=== PATIENT | male | born 1950 | race Caucasian/White ===

== ENCOUNTER 2017-09-20 15:13 | Outpatient (RCR) | payer MEDICARE, SELFPAY ==
[2017-08-07 15:00] LABS: Prothrombin Time Fingerstick 27.7 SEC (11.9-14.4)
[2017-09-04 17:11] LABS: Prothrombin Time Fingerstick 19.1 SEC (11.9-14.4)
[2017-09-20 15:51] LABS: Prothrombin Time Fingerstick 29.5 SEC (11.9-14.4)
== END 2017-09-20 16:00 | disposition home or self-care (01) ==
LOC: MTLAB 15:13
PROVIDERS: Family Provider Internal Medicine; PCP Internal Medicine; Visit Provider Internal Medicine
DX: Z79.01 Long term (current) use of anticoagulants (principal)
CPT/HCPCS: 36416; 85610

== ENCOUNTER 2017-10-23 15:19 | Outpatient (RCR) | payer MEDICARE, SELFPAY ==
[2017-10-23 15:56] LABS: Prothrombin Time Fingerstick 21.9 SEC (11.9-14.4)
== END 2017-10-23 16:00 ==
LOC: MTLAB 15:19
PROVIDERS: Family Provider Internal Medicine; PCP Internal Medicine; Visit Provider Internal Medicine
DX: Z79.01 Long term (current) use of anticoagulants (principal)
CPT/HCPCS: 36416; 85610

== ENCOUNTER 2017-11-23 13:17 | Outpatient (RCR) | payer MEDICARE, OTHER, SELFPAY ==
[2017-10-30 16:31] LABS: Prothrombin Time Fingerstick 21.8 SEC (11.9-14.4)
[2017-11-08 15:21] LABS: Prothrombin Time Fingerstick 23.2 SEC (11.9-14.4)
[2017-11-23 13:31] LABS: Prothrombin Time Fingerstick 14.6 SEC (11.9-14.4)
[2017-11-23 14:33] LABS: International Normalized Ratio 1.3; Prothrombin Time (Protime)PT. 16.1 SECONDS (11.7-14.9)
== END 2017-11-23 14:00 | disposition home or self-care (01) ==
LOC: MTLAB 13:17
PROVIDERS: Family Provider Internal Medicine; PCP Internal Medicine; Visit Provider Internal Medicine
DX: Z79.899 Other long term (current) drug therapy (principal)
CPT/HCPCS: 36415; 36416; 85610

== ENCOUNTER 2017-12-12 14:56 | Outpatient (RCR) | payer MEDICARE, OTHER, SELFPAY ==
[2017-12-04 10:40] LABS: Prothrombin Time Fingerstick 18.3 SEC (11.9-14.4)
[2017-12-05 12:26] LABS: Prothrombin Time Fingerstick 20.7 SEC (11.9-14.4)
[2017-12-12 15:10] LABS: Prothrombin Time Fingerstick 33.4 SEC (11.9-14.4)
== END 2017-12-12 16:00 | disposition home or self-care (01) ==
LOC: MTLAB 14:56
PROVIDERS: Family Provider Internal Medicine; PCP Internal Medicine; Visit Provider Internal Medicine
DX: Z79.01 Long term (current) use of anticoagulants (principal)
CPT/HCPCS: 36416; 85610

== ENCOUNTER 2018-01-22 16:34 | Outpatient (RCR) | payer MEDICARE, OTHER, SELFPAY ==
[2017-12-25 12:56] LABS: Prothrombin Time Fingerstick 64.5 SEC (11.9-14.4)
[2017-12-25 14:27] LABS: Prothrombin Time (Protime)PT. 48.7 SECONDS (11.7-14.9)
[2017-12-25 14:34] LABS: International Normalized Ratio 5.3
[2017-12-26 14:25] LABS: International Normalized Ratio 4.8; Prothrombin Time (Protime)PT. 45.5 SECONDS (11.7-14.9)
[2017-12-28 12:20] LABS: Prothrombin Time Fingerstick 26.7 SEC (11.9-14.4)
[2018-01-03 15:31] LABS: Prothrombin Time Fingerstick 38.2 SEC (11.9-14.4)
[2018-01-10 16:41] LABS: Prothrombin Time Fingerstick 14.6 SEC (11.9-14.4)
[2018-01-16 13:41] LABS: Prothrombin Time Fingerstick 18.2 SEC (11.9-14.4)
[2018-01-22 16:50] LABS: Prothrombin Time Fingerstick 19.6 SEC (11.9-14.4)
== END 2018-01-22 18:00 ==
LOC: MTLAB 16:34
PROVIDERS: Family Provider Internal Medicine; PCP Internal Medicine; Visit Provider Internal Medicine
DX: Z79.01 Long term (current) use of anticoagulants (principal)
CPT/HCPCS: 36415; 36416; 85610

== ENCOUNTER 2018-02-16 13:53 | Outpatient (RCR) | payer MEDICARE, OTHER, SELFPAY ==
[2018-01-29 16:25] LABS: Prothrombin Time Fingerstick 19.7 SEC (11.9-14.4)
[2018-02-07 16:11] LABS: Prothrombin Time Fingerstick 20.9 SEC (11.9-14.4)
[2018-02-16 14:06] LABS: Prothrombin Time Fingerstick 35.4 SEC (11.9-14.4)
== END 2018-02-16 15:00 | disposition home or self-care (01) ==
LOC: MTLAB 13:53
PROVIDERS: Family Provider Internal Medicine; PCP Internal Medicine; Visit Provider Internal Medicine
DX: Z79.01 Long term (current) use of anticoagulants (principal); Z79.899 Other long term (current) drug therapy
CPT/HCPCS: 36416; 85610

== ENCOUNTER 2018-03-19 16:20 | Outpatient (RCR) | payer MEDICARE, OTHER, SELFPAY ==
[2018-02-27 12:00] LABS: Prothrombin Time Fingerstick 25.2 SEC (11.9-14.4)
[2018-03-19 16:31] LABS: Prothrombin Time Fingerstick 25.2 SEC (11.9-14.4)
== END 2018-03-19 18:00 | disposition home or self-care (01) ==
LOC: MTLAB 16:20
PROVIDERS: Family Provider Internal Medicine; PCP Internal Medicine; Visit Provider Nurse Practitioner Family
DX: Z79.01 Long term (current) use of anticoagulants (principal); Z79.899 Other long term (current) drug therapy
CPT/HCPCS: 36416; 85610

== ENCOUNTER 2018-04-16 14:51 | Outpatient (RCR) | payer MEDICARE, OTHER, SELFPAY ==
[2018-04-16 17:38] LABS: Absolute Neutrophil Count 2.6 X10^3/uL (2.0-7.7); Basophil# 0.02 X10^3/uL; Basophil% 0.4 % (0-1); Eosinophils% 2.1 % (0-5); Hematocrit 49.1 % (40-54); Lymphocyte % 31.9 % (19-41); Mean Corp Hgb Conc 32.6 g/gl (32-36); Mean Corpuscular Hgb 30.1 pg (27.0-32.0); Mean Corpuscular Volume 92.5 fL (80-94); Mean Platelet Vol. 9.6 fl (6.2-12.0); Monocyte# 0.46 X10^3/uL; Monocyte% 9.8 % (0-10); Neutrophil # 2.62 X10^3/uL (2.7-7.7); Neutrophil % 55.8 % (47-70); Platelet Count 175 K/mm3 (150-450); RBC Distribution Width CV 13.5 % (11.6-14.6); RBC Distribution Width SD 45.4 fl (35.1-43.9); Red Blood Count 5.31 M/mm3 (4.6-6.2); White Blood Count 4.7 K/mm3 (4.4-11.0)
[2018-04-16 17:45] LABS: POSITIVE COUNT NO; POSITIVE DIFFERENTIAL NO; POSITIVE MORPHOLOGY NO
[2018-04-16 17:57] LABS: International Normalized Ratio 2.5; Prothrombin Time (Protime)PT. 26.7 SECONDS (11.7-14.9)
[2018-04-16 18:01] LABS: ALB/GLOB Ratio 1.2 RATIO (0.9-2.4); AST(SGOT) 24 U/L (15-37); Alanine Aminotransfer ALT/SGPT 37 U/L (16-61); Albumin, Serum 4.1 g/dL (3.2-5.0); Alkaline Phosphatase 88 U/L (45-117); Anion Gap 8 (5-15); BUN 11 mg/dL (7-18); BUN/Creat Ratio 10.4 RATIO (10-20); Calcium,Total 8.7 mg/dL (8.5-10.1); Chloride 107 mmol/L (98-107); Cholesterol 207 mg/dL (200); Creatinine, Serum 1.06 mg/dL (0.70-1.30); EST Glomerular Filtration Rate 74 mL/min (>60); Est Glom Filt Rate - Afr Amer 89 mL/min (>60); Globulin 3.4 g/dL (2.2-4.2); Glucose 103 mg/dL (74-106); High Density Lipoprotein 41 mg/dL; Protein, Total 7.5 g/dL (6.4-8.2); Sodium Level 139 mmol/L (136-145); Triglycerides 273 mg/dL; Very Low Density Lipoprotein 55 mg/dL (5-40)
== END 2018-04-16 16:00 | disposition home or self-care (01) ==
LOC: MTLAB 14:51
PROVIDERS: Family Provider Internal Medicine; PCP Internal Medicine; Referring Provider Nurse Practitioner Family; Visit Provider Nurse Practitioner Family
DX: I10 Essential (primary) hypertension (principal); G40.909 Epilepsy, unspecified, not intractable, without status epilepticus; E66.9 Obesity, unspecified; Z79.01 Long term (current) use of anticoagulants; Z79.899 Other long term (current) drug therapy
CPT/HCPCS: 36415; 80053; 80061; 80184; 85025; 85610

== ENCOUNTER 2018-07-16 14:50 | Outpatient (RCR) | payer MEDICARE, OTHER, SELFPAY ==
[2018-04-10 14:18] VITALS: BMI 30.2
[2018-07-09 13:45] LABS: Prothrombin Time Fingerstick 17.1 SEC (11.9-14.4)
[2018-07-16 15:10] LABS: Prothrombin Time Fingerstick 27.7 SEC (11.9-14.4)
== END 2018-07-16 16:00 | disposition home or self-care (01) ==
LOC: MTLAB 14:50
PROVIDERS: Family Provider Internal Medicine; PCP Internal Medicine; Referring Provider Nurse Practitioner Family; Visit Provider Nurse Practitioner Family
DX: I10 Essential (primary) hypertension (principal); G40.909 Epilepsy, unspecified, not intractable, without status epilepticus; E66.9 Obesity, unspecified; Z79.01 Long term (current) use of anticoagulants; Z79.899 Other long term (current) drug therapy
CPT/HCPCS: 36416; 85610

== ENCOUNTER 2018-08-07 14:00 | Outpatient (RCR) | payer MEDICARE, OTHER, SELFPAY ==
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
--- NOTE | 2018-08-07 16:31 | HP.PTDCSUM ---
HP - PT D/C Summary It has been my pleasure to treat STEVE WOMACK under orders from Yelitza Antonio MD, for the diagnosis of Hemiplegia for a total of 10 visit(s). Discharge Date: Please see the following information for a summary of their discharge status. - Subjective Subjective: Pt is ready for discharge - Objective Objective/Function: Pt is now more aware and displays a more appropriate gait pattern with VC'ing. Pt has experienced no recent falls or LOB. Pt is I with HEP. Rx goals achieved - Goals Goal 1:: Pt will display a more normalized gait pattern to prevent future falls Goal Progress: Goal Met Goal 2:: Increase core stability x 1 grade to aid with improving gait performance Goal Progress: Goal Met Goal 3:: I with HEP Goal Progress: Goal Met - Plan Plan: Discharge - D/C Information If there are questions or concerns regarding this patient's physical therapy, please feel free to call me at [phone]. Thank you for the referral of this patient. Sincerely, Jadon Turcios, PT, ATC
== END 2018-08-07 19:00 | disposition home or self-care (01) ==
LOC: PT 14:00
PROVIDERS: Family Provider Internal Medicine; PCP Internal Medicine; Referring Provider Internal Medicine; Visit Provider Internal Medicine
DX: G81.90 Hemiplegia, unspecified affecting unspecified side (principal); R29.898 Other symptoms and signs involving the musculoskeletal system; Z79.01 Long term (current) use of anticoagulants; Z92.29 Personal history of other drug therapy; Z79.899 Other long term (current) drug therapy
CPT/HCPCS: 36416; 85610; 97110; 97162; 97530

== ENCOUNTER 2018-08-07 15:58 | Outpatient (RCR) | payer MEDICARE, OTHER, SELFPAY ==
[2018-07-09 14:03] VITALS: BMI 30.7
[2018-08-07 16:16] LABS: Prothrombin Time Fingerstick 30.1 SEC (11.9-14.4)
== END 2018-08-23 15:00 | disposition home or self-care (01) ==
LOC: MTLAB 15:58
PROVIDERS: Family Provider Internal Medicine; PCP Internal Medicine; Referring Provider Nurse Practitioner Family; Visit Provider Nurse Practitioner Family
DX: Z79.01 Long term (current) use of anticoagulants (principal); Z92.29 Personal history of other drug therapy; Z79.899 Other long term (current) drug therapy
CPT/HCPCS: 36416; 85610

== ENCOUNTER 2018-09-03 13:11 | Outpatient (RCR) | payer MEDICARE, OTHER, SELFPAY ==
[2018-07-09 14:03] VITALS: BMI 30.7
[2018-09-04 15:51] LABS: Prothrombin Time Fingerstick 28.8 SEC (11.9-14.4)
== END 2018-09-03 14:00 | disposition home or self-care (01) ==
LOC: MTLAB 13:11
PROVIDERS: Family Provider Internal Medicine; PCP Internal Medicine; Referring Provider Nurse Practitioner Family; Visit Provider Nurse Practitioner Family
DX: Z79.01 Long term (current) use of anticoagulants (principal); Z92.29 Personal history of other drug therapy
CPT/HCPCS: 36416; 85610

== ENCOUNTER 2018-10-19 15:44 | Outpatient (RCR) | payer MEDICARE, OTHER, SELFPAY ==
[2018-09-03 14:48] VITALS: BMI 30.7
[2018-10-05 15:56] LABS: Prothrombin Time Fingerstick 34.7 SEC (11.9-14.4)
[2018-10-12 16:06] LABS: Prothrombin Time Fingerstick 50.7 SEC (11.9-14.4)
[2018-10-12 17:40] LABS: Prothrombin Time (Protime)PT. 43.5 SECONDS (11.7-14.9)
[2018-10-12 18:05] LABS: International Normalized Ratio 4.5
[2018-10-16 15:45] LABS: Prothrombin Time Fingerstick 45.5 SEC (11.9-14.4)
[2018-10-16 17:36] LABS: Prothrombin Time (Protime)PT. 41.7 SECONDS (11.7-14.9)
[2018-10-16 18:21] LABS: International Normalized Ratio 4.3
[2018-10-19 16:01] LABS: Prothrombin Time Fingerstick 29.7 SEC (11.9-14.4)
== END 2018-10-23 16:00 | disposition home or self-care (01) ==
LOC: MTLAB 15:44
PROVIDERS: Family Provider Internal Medicine; PCP Internal Medicine; Referring Provider Nurse Practitioner Family; Visit Provider Nurse Practitioner Family
DX: Z79.01 Long term (current) use of anticoagulants (principal); Z92.29 Personal history of other drug therapy
CPT/HCPCS: 36415; 36416; 85610

== ENCOUNTER 2018-11-21 11:44 | Outpatient (RCR) | payer MEDICARE, OTHER, SELFPAY ==
[2018-09-03 14:48] VITALS: BMI 30.7
[2018-10-25 13:44] LABS: International Normalized Ratio 5.1; Prothrombin Time (Protime)PT. 47.8 SECONDS (11.7-14.9)
[2018-10-27 12:20] LABS: Prothrombin Time Fingerstick 13.1 SEC (11.9-14.4)
[2018-10-27 20:18] LABS: Xtra Tube EP Lab EXTRA TUBE
[2018-10-31 13:11] LABS: Prothrombin Time Fingerstick 12.7 SEC (11.9-14.4)
[2018-11-06 10:30] LABS: Prothrombin Time Fingerstick 16.4 SEC (11.9-14.4)
[2018-11-21 12:01] LABS: Prothrombin Time Fingerstick 22.5 SEC (11.9-14.4)
== END 2018-11-21 13:00 | disposition home or self-care (01) ==
LOC: MTLAB 11:44
PROVIDERS: Family Provider Internal Medicine; PCP Internal Medicine; Referring Provider Nurse Practitioner Family; Visit Provider Nurse Practitioner Family
DX: Z79.01 Long term (current) use of anticoagulants (principal); Z92.29 Personal history of other drug therapy
CPT/HCPCS: 36415; 36416; 85610

== ENCOUNTER 2018-12-21 15:17 | Outpatient (RCR) | payer MEDICARE, OTHER, SELFPAY ==
[2018-10-31 13:58] VITALS: BMI 30.7
[2018-11-29 10:21] LABS: Prothrombin Time Fingerstick 22.4 SEC (11.9-14.4)
[2018-12-03 08:50] LABS: Prothrombin Time Fingerstick 22.4 SEC (11.9-14.4)
[2018-12-03 12:38] LABS: Absolute Lymphocyte Count 1.42 X10^3/ul (0.83-4.51); Absolute Neutrophil Count 2.6 X10^3/uL (2.0-7.7); Basophil# 0.02 X10^3/uL; Basophil% 0.4 % (0-1); Eosinophil# 0.05 X10^3/uL; Eosinophils% 1.1 % (0-5); Hematocrit 46.1 % (40-54); Hemoglobin 15.1 g/dl (13.0-16.5); Lymphocyte # 1.42 X10^3/ul (4.0); Lymphocyte % 31.2 % (19-41); Mean Corp Hgb Conc 32.8 g/gl (32-36); Mean Corpuscular Volume 91.5 fL (80-94); Mean Platelet Vol. 10.2 fl (6.2-12.0); Monocyte# 0.44 X10^3/uL; Monocyte% 9.7 % (0-10); Neutrophil # 2.62 X10^3/uL (2.7-7.7); Neutrophil % 57.6 % (47-70); Platelet Count 178 K/mm3 (150-450); RBC Distribution Width CV 14.4 % (11.6-14.6); RBC Distribution Width SD 47.4 fl (35.1-43.9); Red Blood Count 5.04 M/mm3 (4.6-6.2); White Blood Count 4.6 K/mm3 (4.4-11.0)
[2018-12-03 12:43] LABS: POSITIVE COUNT NO; POSITIVE DIFFERENTIAL NO; POSITIVE MORPHOLOGY NO
[2018-12-03 13:06] LABS: ALB/GLOB Ratio 1.3 RATIO (0.9-2.4); AST(SGOT) 19 U/L (15-37); Alanine Aminotransfer ALT/SGPT 23 U/L (16-61); Albumin, Serum 4.1 g/dL (3.2-5.0); Alkaline Phosphatase 72 U/L (45-117); Anion Gap 8 (5-15); BUN 18 mg/dL (7-18); BUN/Creat Ratio 20.3 RATIO (10-20); Calcium,Total 8.9 mg/dL (8.5-10.1); Chloride 107 mmol/L (98-107); Creatinine, Serum 0.89 mg/dL (0.70-1.30); EST Glomerular Filtration Rate 90 mL/min (>60); Est Glom Filt Rate - Afr Amer 109 mL/min (>60); Globulin 3.2 g/dL (2.2-4.2); Glucose 94 mg/dL (74-106); Potassium 3.7 mmol/L (3.5-5.1); Protein, Total 7.3 g/dL (6.4-8.2); Sodium Level 140 mmol/L (136-145)
[2018-12-21 15:31] LABS: Prothrombin Time Fingerstick 33.1 SEC (11.9-14.4)
== END 2018-12-21 16:00 | disposition home or self-care (01) ==
LOC: MTLAB 15:17
PROVIDERS: Family Provider Internal Medicine; PCP Internal Medicine; Referring Provider Nurse Practitioner Family; Visit Provider Nurse Practitioner Family
DX: Z79.01 Long term (current) use of anticoagulants (principal); Z92.29 Personal history of other drug therapy; F41.8 Other specified anxiety disorders; I10 Essential (primary) hypertension
CPT/HCPCS: 36415; 36416; 80053; 85025; 85610

== ENCOUNTER 2019-01-18 12:55 | Outpatient (RCR) | payer MEDICARE, OTHER, SELFPAY ==
[2018-12-03 09:14] VITALS: BMI 30.7
[2019-01-18 13:25] LABS: Prothrombin Time Fingerstick 34.3 SEC (11.9-14.4)
== END 2019-01-18 13:00 | disposition home or self-care (01) ==
LOC: MTLAB 12:55
PROVIDERS: Family Provider Internal Medicine; PCP Internal Medicine; Referring Provider Nurse Practitioner Family; Visit Provider Nurse Practitioner Family
DX: Z79.01 Long term (current) use of anticoagulants (principal); Z92.29 Personal history of other drug therapy
CPT/HCPCS: 36416; 85610

== ENCOUNTER 2019-02-22 14:22 | Outpatient (RCR) | payer MEDICARE, OTHER, SELFPAY ==
[2018-12-03 09:14] VITALS: BMI 30.7
[2019-02-23 07:05] LABS: Prothrombin Time Fingerstick 27.9 SEC (11.9-14.4)
== END 2019-02-22 18:00 | disposition home or self-care (01) ==
LOC: MTLAB 14:22
PROVIDERS: Family Provider Internal Medicine; PCP Internal Medicine; Referring Provider Nurse Practitioner Family; Visit Provider Nurse Practitioner Family
DX: Z79.01 Long term (current) use of anticoagulants (principal); Z92.29 Personal history of other drug therapy
CPT/HCPCS: 36416; 85610

== ENCOUNTER → 2019-03-04 09:31 | Outpatient (CLI) | payer MEDICARE, OTHER, SELFPAY ==
[2019-03-04 09:07] VITALS: BMI 30.7
--- NOTE | 2019-03-04 10:05 | EKG12_ITS ---
Test Reason : ROUTINE Blood Pressure : / mmHG Vent. Rate : 090 BPM Atrial Rate : 090 BPM P-R Int : 132 ms QRS Dur : 088 ms QT Int : 338 ms P-R-T Axes : 050 -12 051 degrees QTc Int : 413 ms Normal sinus rhythm Normal ECG Confirmed by KENDELL MARI ([id number]), food editor IGGY WOMACK ([id number]) on 03/11/2019 2:29:14 PM Referred By: Yelitza Antonio Confirmed By:KENDELL MARI
[2019-03-04 13:02] LABS: Cholesterol 223 mg/dL (200); High Density Lipoprotein 46 mg/dL; Triglycerides 205 mg/dL; Very Low Density Lipoprotein 41 mg/dL (5-40)
== END ==
LOC: BIMLAB 09:34 → CVS 09:57
PROVIDERS: Family Provider Internal Medicine; PCP Internal Medicine; Referring Provider Internal Medicine; Visit Provider Internal Medicine
DX: I10 Essential (primary) hypertension (principal)
CPT/HCPCS: 36415; 80061; 93005

== ENCOUNTER 2019-04-24 14:16 | Outpatient (RCR) | payer MEDICARE, OTHER, SELFPAY ==
[2018-12-03 09:14] VITALS: BMI 30.7
[2019-03-04 09:07] VITALS: BMI 30.7
[2019-04-18 15:27] LABS: Prothrombin Time Fingerstick 18.9 SEC (11.9-14.4)
[2019-04-24 14:34] LABS: Prothrombin Time Fingerstick 23.9 SEC (11.9-14.4)
== END 2019-04-24 18:00 | disposition home or self-care (01) ==
LOC: MTLAB 14:16
PROVIDERS: Family Provider Internal Medicine; PCP Internal Medicine; Referring Provider Nurse Practitioner Family; Visit Provider Nurse Practitioner Family
DX: Z79.01 Long term (current) use of anticoagulants (principal); Z92.29 Personal history of other drug therapy
CPT/HCPCS: 36416; 85610

== ENCOUNTER 2019-05-09 14:09 | Outpatient (RCR) | payer MEDICARE, OTHER, SELFPAY ==
[2019-03-04 09:07] VITALS: BMI 30.7
[2019-05-01 13:16] LABS: Prothrombin Time Fingerstick 25.5 SEC (11.9-14.4)
[2019-05-14 07:40] LABS: Prothrombin Time Fingerstick 19.9 SEC (11.9-14.4)
== END 2019-05-09 18:00 | disposition home or self-care (01) ==
LOC: MTLAB 14:09
PROVIDERS: Family Provider Internal Medicine; PCP Internal Medicine; Referring Provider Nurse Practitioner Family; Visit Provider Nurse Practitioner Family
DX: Z79.01 Long term (current) use of anticoagulants (principal); Z92.29 Personal history of other drug therapy
CPT/HCPCS: 36416; 85610

== ENCOUNTER → 2019-05-17 16:30 | Outpatient (CLI) | payer MEDICARE, OTHER, SELFPAY ==
[2019-05-10 13:15] VITALS: BMI 30.7
== END ==
PROVIDERS: Family Provider Internal Medicine; PCP Internal Medicine; Referring Provider Nurse Practitioner Family; Visit Provider Nurse Practitioner Family
DX: Z79.899 Other long term (current) drug therapy (principal); G40.909 Epilepsy, unspecified, not intractable, without status epilepticus
CPT/HCPCS: 36415; 80184

== ENCOUNTER 2019-05-27 14:08 | Outpatient (RCR) | payer MEDICARE, OTHER, SELFPAY ==
[2019-05-10 13:15] VITALS: BMI 30.7
[2019-05-27 15:49] LABS: Prothrombin Time Fingerstick 27.9 SEC (11.9-14.4)
== END 2019-05-27 18:00 | disposition home or self-care (01) ==
LOC: MTLAB 14:08
PROVIDERS: Family Provider Internal Medicine; PCP Internal Medicine; Referring Provider Nurse Practitioner Family; Visit Provider Nurse Practitioner Family
DX: Z79.01 Long term (current) use of anticoagulants (principal); Z92.29 Personal history of other drug therapy
CPT/HCPCS: 36416; 85610

== ENCOUNTER 2019-07-11 11:58 | Outpatient (RCR) | payer MEDICARE, OTHER, SELFPAY ==
[2019-05-10 13:15] VITALS: BMI 30.7
[2019-07-11 17:06] LABS: Prothrombin Time Fingerstick 25.7 SEC (11.9-14.4)
== END 2019-07-11 18:00 | disposition home or self-care (01) ==
LOC: MTLAB 11:58
PROVIDERS: Family Provider Internal Medicine; PCP Internal Medicine; Referring Provider Nurse Practitioner Family; Visit Provider Nurse Practitioner Family
DX: Z79.01 Long term (current) use of anticoagulants (principal); Z92.29 Personal history of other drug therapy
CPT/HCPCS: 36416; 85610

== ENCOUNTER 2019-08-06 15:44 | Outpatient (RCR) | payer MEDICARE, OTHER, SELFPAY ==
[2019-05-10 13:15] VITALS: BMI 30.7
[2019-08-06 15:56] LABS: Prothrombin Time Fingerstick 25.7 SEC (11.9-14.4)
== END 2019-08-06 18:00 | disposition home or self-care (01) ==
LOC: MTLAB 15:44
PROVIDERS: Family Provider Internal Medicine; PCP Internal Medicine; Referring Provider Nurse Practitioner Family; Visit Provider Nurse Practitioner Family
DX: Z79.01 Long term (current) use of anticoagulants (principal); Z92.29 Personal history of other drug therapy
CPT/HCPCS: 36416; 85610

== ENCOUNTER 2019-08-07 14:00 | Outpatient (RCR) | payer MEDICARE, OTHER, SELFPAY ==
[2019-03-04 09:07] VITALS: BMI 30.7
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
--- NOTE | 2019-10-10 10:24 | HP.PTDCSUM ---
It has been my pleasure to treat STEVE WOMACK referred by DOMENICA Galarza, with the diagnosis of Hemiplegia for a total of 16 visit(s). Discharge Date: Please see the following information for a summary of their discharge status. Subjective: Pt areports he is ready for discharge. Pt notes PT has helped him, but it wears him out too much to continue % Improvement: 90 Objective/Function: Pt has no difficulty with stairs at this time. Pt reports he is able to ambulate better with less hip IR during gait. Pt is I with HEP. Rx goals achieved Goal 1:: Pt will ambulate with more awareness of R LE IR of the hip to aid with fall prevention Goal Progress: Goal Met Goal 2:: I with HEP Goal Progress: Goal Met Goal 3:: Increase R LE strength x 1 grade to aid with stair negotiation Goal Progress: Goal Met Plan: Discharge If there are questions or concerns regarding this patient's physical therapy, please feel free to call me at [phone]. Thank you for the referral of this patient. Sincerely, Jadon Turcios, PT, ATC
== END 2019-08-07 19:00 | disposition home or self-care (01) ==
LOC: PT 14:00
PROVIDERS: Family Provider Internal Medicine; PCP Internal Medicine; Referring Provider Nurse Practitioner Family; Visit Provider Nurse Practitioner Family
DX: G81.90 Hemiplegia, unspecified affecting unspecified side (principal)
CPT/HCPCS: 97110; 97161; 97164

== ENCOUNTER → 2019-08-26 14:50 | Outpatient (CLI) | payer MEDICARE, OTHER, SELFPAY ==
[2019-08-20 15:22] VITALS: BMI 30.7
--- NOTE | 2019-08-26 15:20 | EKG12_ITS ---
Test Reason : PRE OP Blood Pressure : / mmHG Vent. Rate : 085 BPM Atrial Rate : 085 BPM P-R Int : 176 ms QRS Dur : 090 ms QT Int : 350 ms P-R-T Axes : 061 -03 027 degrees QTc Int : 416 ms Normal sinus rhythm Normal ECG Confirmed by SYED HALE, ISABELLA ([id number]), copy editor IGGY WOMACK ([id number]) on 08/28/2019 11:29:05 AM Referred By: Nahum Krishna Confirmed By:ISABELLA LYNCH MD
[2019-08-26 16:12] LABS: ALB/GLOB Ratio 1.1 RATIO (0.9-2.4); AST(SGOT) 17 U/L (15-37); Alanine Aminotransfer ALT/SGPT 25 U/L (16-61); Albumin, Serum 3.9 g/dL (3.2-5.0); Alkaline Phosphatase 91 U/L (45-117); Anion Gap 4 (5-15); BUN 17 mg/dL (7-18); Calcium,Total 8.8 mg/dL (8.5-10.1); Chloride 111 mmol/L (98-107); EST Glomerular Filtration Rate 79 mL/min (>60); Est Glom Filt Rate - Afr Amer 95 mL/min (>60); Globulin 3.7 g/dL (2.2-4.2); Glucose 93 mg/dL (74-106); Potassium 4.2 mmol/L (3.5-5.1); Protein, Total 7.6 g/dL (6.4-8.2); Sodium Level 141 mmol/L (136-145); Thyroid Stim Hormone (TSH) 2.12 uIU/mL (0.358-3.74)
[2019-08-26 16:24] LABS: Absolute Lymphocyte Count 1.68 X10^3/uL (0.83-4.51); Absolute Neutrophil Count 4.1 X10^3/uL (2.0-7.7); Basophil# 0.03 X10^3/uL; Basophil% 0.5 % (0-1); Hematocrit 49.9 % (40-54); Hemoglobin 15.7 g/dL (13.0-16.5); Lymphocyte # 1.68 X10^3/ul (4.0); Lymphocyte % 25.9 % (19-41); Mean Corp Hgb Conc 31.5 g/dL (32-36); Mean Corpuscular Volume 92.2 fL (80-94); Mean Platelet Vol. 9.5 fl (6.2-12.0); Monocyte# 0.63 X10^3/uL; Monocyte% 9.7 % (0-10); NRBC Flagged by Analyzer 0 % (0-5); Neutrophil # 4.13 X10^3/uL (2.7-7.7); Neutrophil % 63.7 % (47-70); Platelet Count 179 K/mm3 (150-450); RBC Distribution Width CV 13.4 % (11.6-14.6); RBC Distribution Width SD 45.4 fl (35.1-43.9); Red Blood Count 5.41 M/mm3 (4.6-6.2); White Blood Count 6.5 K/mm3 (4.4-11.0)
== END ==
PROVIDERS: PCP Internal Medicine; Referring Provider Nurse Practitioner Family; Visit Provider Nurse Practitioner Family
DX: Z01.818 Encounter for other preprocedural examination (principal); Z01.810 Encounter for preprocedural cardiovascular examination; I10 Essential (primary) hypertension
CPT/HCPCS: 36415; 80053; 84443; 85025; 93005

== ENCOUNTER 2019-09-06 13:52 | Emergency (ER) | payer MEDICARE, OTHER, SELFPAY ==
[2019-08-20 15:22] VITALS: BMI 30.7
[2019-09-06 13:54] VITALS: BP 119/79; PULSE 83; RESP 18; TEMP 36.7; O2SAT 98; BMI 31.7
--- NOTE | 2019-09-06 14:22 | VDUE_ITS ---
Reason For Study: Pain Left Proximal Left jugular vein is spontaneous, widely patent, phasic, with no intraluminal echogenicity noted. Left subclavian vein is spontaneous, widely patent, phasic, with no intraluminal echogenicity noted. Left Arm Left axillary vein is spontaneous, patent, phasic, competent, compressible and demonstrates augmentation. Left brachial vein is compressible. Left cephalic vein is compressible. Left basilic vein is compressible. Left Lower Arm Left radial vein is compressible. Left ulnar vein is compressible. Patient Safety Prelim to ED. Interpretation Summary Deep veins of the left upper extremity are patent and compressible segmentally. There is no evidence of deep vein thrombosis. The superficial veins of the left upper extremity, the basilic and cephalic veins, are patent and compressible. There is no evidence of left upper extremity superficial thrombophlebitis involving the veins imaged. Ordering Physician: Marv Flores Referring Physician: Yelitza Antonio Performed By: Violet Rouse RVT ?
[2019-09-06 14:24] VITALS: BP 119/95; PULSE 78; RESP 18; TEMP 36.4; O2SAT 97
[2019-09-06 14:41] LABS: Absolute Lymphocyte Count 1.57 X10^3/uL (0.83-4.51); Absolute Neutrophil Count 2.9 X10^3/uL (2.0-7.7); Basophil# 0.03 X10^3/uL; Basophil% 0.6 % (0-1); Hematocrit 50.6 % (40-54); Lymphocyte # 1.57 X10^3/ul (4.0); Lymphocyte % 31.6 % (19-41); Mean Corp Hgb Conc 33.6 g/dL (32-36); Mean Corpuscular Hgb 30.7 pg (27.0-32.0); Mean Corpuscular Volume 91.5 fL (80-94); Mean Platelet Vol. 9.3 fl (6.2-12.0); Monocyte# 0.41 X10^3/uL; Monocyte% 8.2 % (0-10); NRBC Flagged by Analyzer 0 % (0-5); Neutrophil # 2.85 X10^3/uL (2.7-7.7); Neutrophil % 57.4 % (47-70); Platelet Count 178 K/mm3 (150-450); RBC Distribution Width CV 12.8 % (11.6-14.6); RBC Distribution Width SD 43.1 fl (35.1-43.9); Red Blood Count 5.53 M/mm3 (4.6-6.2)
[2019-09-06 14:56] LABS: Anion Gap 5 (5-15); BUN 15 mg/dL (7-18); BUN/Creat Ratio 16.3 RATIO (10-20); Calcium,Total 8.7 mg/dL (8.5-10.1); Chloride 108 mmol/L (98-107); Creatinine, Serum 0.92 mg/dL (0.70-1.30); EST Glomerular Filtration Rate 87 mL/min (>60); Est Glom Filt Rate - Afr Amer 105 mL/min (>60); Estimated Creatinine Clearance 83.18 ml/min; Glucose 97 mg/dL (74-106); Sodium Level 138 mmol/L (136-145)
[2019-09-06 15:17] LABS: International Normalized Ratio 1.2; Prothrombin Time (Protime)PT. 15.2 SECONDS (11.7-14.9)
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
== END 2019-09-06 15:44 | disposition home or self-care (01) ==
PROVIDERS: Emergency Provider Emergency Medicine; PCP Internal Medicine
DX: M79.602 Pain in left arm (principal); G89.18 Other acute postprocedural pain; G40.909 Epilepsy, unspecified, not intractable, without status epilepticus; Z86.711 Personal history of pulmonary embolism; Z79.01 Long term (current) use of anticoagulants
CPT/HCPCS: 36415; 80048; 85025; 85610; 93971; 99282

== ENCOUNTER → 2019-09-16 15:12 | Outpatient (CLI) | payer MEDICARE, OTHER, SELFPAY ==
[2019-09-09 13:30] VITALS: BMI 31.7
[2019-09-16 17:11] LABS: Prothrombin Time (Protime)PT. 37.9 SECONDS (11.7-14.9)
[2019-09-16 17:43] LABS: International Normalized Ratio 3.8
== END ==
PROVIDERS: Nurse Practitioner Family; PCP Internal Medicine; Referring Provider Internal Medicine; Visit Provider Internal Medicine
DX: Z79.01 Long term (current) use of anticoagulants (principal); Z92.29 Personal history of other drug therapy
CPT/HCPCS: 36415; 85610

== ENCOUNTER 2019-09-19 09:03 | Outpatient (RCR) | payer MEDICARE, OTHER, SELFPAY ==
[2019-08-20 15:22] VITALS: BMI 30.7
[2019-09-09 13:30] VITALS: BMI 31.7
[2019-09-09 16:20] LABS: International Normalized Ratio 1.8; Prothrombin Time (Protime)PT. 21.1 SECONDS (11.7-14.9)
[2019-09-19 09:11] LABS: Prothrombin Time Fingerstick 18.9 SEC (11.9-14.4)
== END 2019-09-24 23:59 ==
LOC: BIMLAB 09:03
PROVIDERS: Family Provider Internal Medicine; PCP Internal Medicine; Referring Provider Nurse Practitioner Family; Visit Provider Nurse Practitioner Family
DX: Z79.01 Long term (current) use of anticoagulants (principal); Z92.29 Personal history of other drug therapy
CPT/HCPCS: 36415; 36416; 85610

== ENCOUNTER → 2019-10-22 14:18 | Outpatient (CLI) | payer MEDICARE, OTHER, SELFPAY ==
[2019-10-08 16:45] VITALS: BMI 31.7
--- NOTE | 2019-10-22 14:22 | CT_ITS ---
STUDY: CT SCAN left hand. REASON FOR EXAM: Male, 69 years old. PT STATED LEFT HAND PAIN AND UNABLE TO MOVE FINGERS. R/O CARPAL TUNNEL SYNDROME RADIATION DOSAGE (If Supplied By Facility): CTDIvol = ( 24.58 ) mGy, DLP = ( 708.11 ) mGycm. Individualized dose optimization techniques were used for this CT.? TECHNIQUE: Multiple axial tomographic images of the hand were obtained without intravenous contrast administration. Coronal and sagittal reconstruction were obtained as well. COMPARISON: None. FINDINGS: There is a soft tissue thickening of the volar aspect of the wrist. I suspect fluid surrounding several tendon suggestive of a possible tendinitis. No bony abnormality is seen. CT/Extremity Upper without Contra IMPRESSION: Soft tissue prominence with possible evidence of a tendinitis involving the flexor tendons. Electronically Signed: Ruddy Hernandez, at 15:37 EDT , Service support ,
--- NOTE | 2019-10-22 15:38 | CT_ITS ---
STUDY: CT LEFT SHOULDER REASON FOR EXAM: Male, 69 years old. PAIN RADIATION DOSAGE (If Supplied By Facility): CTDIvol = ( 33.35 ) mGy, DLP = ( 793.91 ) mGycm TECHNIQUE: The patient was scanned in a multi detector CT scanner. High resolution transaxial imaging was performed without the administration of intravenous contrast material. Sagittal and coronal images were reconstructed. Individualized dose optimization techniques were used for this CT. COMPARISON: None. FINDINGS: Normal glenohumeral articulation. Normal glenoid rim, neck and visualized scapula. There is evidence of a spur formation along the anterior medial portion of the left humeral head. Normal coracoid process. Normal visualized lateral clavicle. Normal acromioclavicular articulation. There is a Type II morphology (curved), with a neutral orientation. Normal visualized muscles and soft tissue structures. CT/Extremity Upper without Contra IMPRESSION: No acute abnormality is seen. Electronically Signed: Ruddy Hernandez, at 16:04 EDT , Service support ,
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
== END ==
PROVIDERS: PCP Internal Medicine; Referring Provider Orthopaedic Surgery; Visit Provider Orthopaedic Surgery
DX: G56.02 Carpal tunnel syndrome, left upper limb (principal)
CPT/HCPCS: 73200

== ENCOUNTER 2019-10-23 13:49 | Outpatient (RCR) | payer MEDICARE, OTHER, SELFPAY ==
[2019-09-09 13:30] VITALS: BMI 31.7
[2019-10-04 13:55] LABS: International Normalized Ratio 1.5; Prothrombin Time (Protime)PT. 17.5 SECONDS (11.7-14.9)
[2019-10-08 15:09] LABS: International Normalized Ratio 2.5; Prothrombin Time (Protime)PT. 26.3 SECONDS (11.7-14.9)
[2019-10-10 13:19] LABS: International Normalized Ratio 2.7; Prothrombin Time (Protime)PT. 28.1 SECONDS (11.7-14.9)
[2019-10-17 14:35] LABS: International Normalized Ratio 3.4; Prothrombin Time (Protime)PT. 33.9 SECONDS (11.7-14.9)
[2019-10-23 14:25] LABS: Prothrombin Time (Protime)PT. 36.7 SECONDS (11.7-14.9)
[2019-10-23 14:32] LABS: International Normalized Ratio 3.7
== END 2019-10-24 18:00 | disposition home or self-care (01) ==
LOC: HHLAB 13:49
PROVIDERS: PCP Internal Medicine; Referring Provider Orthopaedic Surgery; Visit Provider Internal Medicine
DX: Z79.01 Long term (current) use of anticoagulants (principal)
CPT/HCPCS: 85610

== ENCOUNTER 2019-11-06 14:40 | Outpatient (RCR) | payer MEDICARE, OTHER, SELFPAY ==
[2019-10-08 16:45] VITALS: BMI 31.7
[2019-10-30 14:58] LABS: International Normalized Ratio 2.4; Prothrombin Time (Protime)PT. 25.8 SECONDS (11.7-14.9)
[2019-11-06 17:07] LABS: International Normalized Ratio 1.1; Prothrombin Time (Protime)PT. 13.8 SECONDS (11.7-14.9)
== END 2019-11-06 18:00 | disposition home or self-care (01) ==
LOC: HHLAB 14:40
PROVIDERS: PCP Internal Medicine; Referring Provider Orthopaedic Surgery; Visit Provider Internal Medicine
DX: Z79.01 Long term (current) use of anticoagulants (principal); M75.42 Impingement syndrome of left shoulder; M19.012 Primary osteoarthritis, left shoulder; M25.722 Osteophyte, left elbow
CPT/HCPCS: 85610

== ENCOUNTER → 2020-03-10 15:28 | Outpatient (CLI) | payer MEDICARE, OTHER, SELFPAY ==
[2020-03-10 14:58] VITALS: BMI 31.7
[2020-03-10 17:46] LABS: International Normalized Ratio 1.4; Prothrombin Time (Protime)PT. 16.9 SECONDS (11.7-14.9)
== END ==
PROVIDERS: PCP Nurse Practitioner Family; Visit Provider Internal Medicine
DX: I26.99 Other pulmonary embolism without acute cor pulmonale (principal); Z79.01 Long term (current) use of anticoagulants; Z92.29 Personal history of other drug therapy
CPT/HCPCS: 36415; 85610

== ENCOUNTER 2020-03-14 04:44 | Emergency (ER) | payer MEDICARE, OTHER, SELFPAY ==
[2020-03-10 14:58] VITALS: BMI 31.7
[2020-03-14 04:45] VITALS: BP 180/100; PULSE 83; RESP 20; TEMP 36; O2SAT 96; BMI 34.2
--- NOTE | 2020-03-14 05:01 | EKG12_ITS ---
Test Reason : CP Blood Pressure : / mmHG Vent. Rate : 085 BPM Atrial Rate : 085 BPM P-R Int : 182 ms QRS Dur : 092 ms QT Int : 366 ms P-R-T Axes : 057 -18 038 degrees QTc Int : 435 ms Normal sinus rhythm Normal ECG Confirmed by SUSAN HALE, BEATRIZ ([id number]), editor continuity and script JENNIFER MACKAY ([id number]) on 03/17/2020 1:35:07 PM Referred By: MELANIE Confirmed By:BEATRIZ DAVIS MD
[2020-03-14 05:15] LABS: Absolute Lymphocyte Count 1.15 X10^3/uL (0.83-4.51); Absolute Neutrophil Count 6.4 X10^3/uL (2.0-7.7); Basophil# 0.02 X10^3/uL; Basophil% 0.2 % (0-1); Hemoglobin 16.4 g/dL (13.0-16.5); Lymphocyte # 1.15 X10^3/ul (4.0); Lymphocyte % 14.1 % (19-41); Mean Corp Hgb Conc 32.8 g/dL (32-36); Mean Corpuscular Hgb 30.8 pg (27.0-32.0); Mean Corpuscular Volume 93.8 fL (80-94); Mean Platelet Vol. 9.1 fl (6.2-12.0); Monocyte# 0.63 X10^3/uL; Monocyte% 7.7 % (0-10); NRBC Flagged by Analyzer 0 % (0-5); Neutrophil # 6.35 X10^3/uL (2.7-7.7); Neutrophil % 77.6 % (47-70); Platelet Count 170 K/mm3 (150-450); RBC Distribution Width CV 12.8 % (11.6-14.6); RBC Distribution Width SD 44.1 fl (35.1-43.9); Red Blood Count 5.33 M/mm3 (4.6-6.2); White Blood Count 8.2 K/mm3 (4.4-11.0)
[2020-03-14] MEDS: Aspirin 81 MG TAB.CHEW 324 MG PO (05:15)
[2020-03-14] MEDS: 0.9% Normal Saline 1,000 ML 150 ML IV (05:16)
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
[2020-03-14 05:24] LABS: International Normalized Ratio 1.3; Prothrombin Time (Protime)PT. 15.2 SECONDS (11.7-14.9)
--- NOTE | 2020-03-14 05:25 | RAD_ITS ---
HISTORY: CHEST PAIN MID CHEST AREA SINCE 01:30. EXAM: XR Chest 1 View: COMPARISON: None FINDINGS: # of images incl. paperwork: 1 Lungs are clear. Heart is not enlarged. No acute osseous pathology perceived. Pulmonary vascularity is distinct. No effusions. RAD/Chest 1 View (Portable) IMPRESSION: Normal. at 0558 Reported and signed by: Issa Kathleen MD Electronically Signed: Issa Kathleen MD at 5:57 EDT Tel , Service support ,
[2020-03-14 05:35] LABS: AST(SGOT) 19 U/L (15-37); Alanine Aminotransfer ALT/SGPT 21 U/L (16-61); Albumin, Serum 4.2 g/dL (3.2-5.0); Alkaline Phosphatase 83 U/L (45-117); Anion Gap 8 (5-15); BUN 12 mg/dL (7-18); BUN/Creat Ratio 10.3 RATIO (10-20); Bilirubin, Direct 0.12 mg/dL (0.00-0.30); Chloride 104 mmol/L (98-107); Creatinine, Serum 1.16 mg/dL (0.70-1.30); EST Glomerular Filtration Rate 66 mL/min (>60); Est Glom Filt Rate - Afr Amer 80 mL/min (>60); Estimated Creatinine Clearance 65.97 ml/min; Globulin 3.4 g/dL (2.2-4.2); Glucose 122 mg/dL (74-106); Lipase 114 U/L (73-393); Protein, Total 7.6 g/dL (6.4-8.2); Sodium Level 140 mmol/L (136-145)
[2020-03-14 05:47] VITALS: BP 145/83; PULSE 92; RESP 15; O2SAT 94
--- NOTE | 2020-03-14 06:15 | US_ITS ---
STUDY: ABDOMINAL ULTRASOUND - RIGHT UPPER QUADRANT REASON FOR VISIT: Male, 69 years old EPIGASTRIC PAIN TECHNIQUE: Ultrasound evaluation of the right upper quadrant was performed with real-time and static uriostegui-scale imaging. TECHNICAL QUALITY: Adequate. COMPARISON: None. FINDINGS: Liver: The liver measures 16.5 cm. There is increased echogenicity consistent with fatty infiltration. The bile ducts are within normal limits. There is hepatic color flow. The direction of portal flow is hepatopetal. There is no demonstrated mass lesion. Gallbladder: Normal distended gallbladder. The gallbladder wall measures 2 mm. There is a negative sonographic Cardenas''s sign. There is no pericholecystic fluid. Stones and sludge in the gallbladder. Common Bile Duct (C.B.D.): The common bile duct measures 4 mm. Pancreas: Normal size of the head, body and tail of the pancreas. There is normal echogenicity of the pancreas. There is no demonstrated pancreatic mass or cyst. Right Kidney: Normal size of the right kidney. The right kidney measures 10.7 cm. Normal renal cortex. The right cortex measures 1.9 cm. There is no demonstrated renal mass or cyst. There is no right hydronephrosis. US/Abdomen Limited IMPRESSION: 1. Stones and sludge in the gallbladder. 2. Fatty infiltration of the liver. Electronically Signed: Jules Barnett MD at 7:36 EDT Tel , Service support ,
[2020-03-14 06:19] VITALS: BP 139/79; PULSE 89; RESP 15; O2SAT 93
--- NOTE | 2020-03-14 08:00 | EKG12_ITS ---
Test Reason : REPEAT Blood Pressure : / mmHG Vent. Rate : 083 BPM Atrial Rate : 083 BPM P-R Int : 186 ms QRS Dur : 092 ms QT Int : 368 ms P-R-T Axes : 059 -12 043 degrees QTc Int : 432 ms Normal sinus rhythm Normal ECG Confirmed by SUSAN HALE, BEATRIZ ([id number]), editor trade journal JENNIFER MACKAY ([id number]) on 03/17/2020 1:35:22 PM Referred By: Confirmed By:BEATRIZ DAVIS MD
[2020-03-14 08:16] VITALS: PULSE 82; RESP 17; O2SAT 94
--- NOTE | 2020-03-14 08:57 | ED.VISSUMM ---
- ER Visit Summary Date of Service: 03/14/20 Chief Complaint: [] History of Present Illness: The patient is a 69 M [] Physical Examination: [] Test Results: [] Emergency Department Course and Treatment: [] Treatment Plan: [] Disposition: [] Impression: [] This note was generated with NewsFixed dictation software. It may contain incorrect words, spelling, and punctuation that were not noted in review of the chart prior to signing ED Disposition - Plan for ED Patient: Disposition: Home or Assisted Living Diagnosis: Epigastric pain, Chest pain Instructions: ED Chest Pain Atypical Unkn Cause, ED Epigastric Pain [facility] Referrals: Yelitza Antonio MD [Primary Care Provider] - 1-2 Weeks Dwight Kay MD [STAFF PHYSICIAN] - Additional Instructions: Initial EKG and chest x-ray are unremarkable. Initial blood work is significant only for slightly subtherapeutic INR at 1.3. Your Coumadin dose was recently changed in an attempt to correct this. Please follow-up next week as planned for your repeat INR. The second EKG is also unremarkable. Both troponin levels were normal. The ultrasound of the right upper quadrant and gallbladder shows some stones and sludge but does not show infection. All of the liver function testing is normal. I will give you follow-up with general surgery for elective evaluation for gallbladder removal if this becomes a chronic problem.
[2020-03-14 09:13] VITALS: BP 142/79; PULSE 69; RESP 15; O2SAT 98
== END 2020-03-14 09:14 | disposition home or self-care (01) ==
PROVIDERS: Emergency Provider Emergency Medicine; PCP Internal Medicine
DX: R07.9 Chest pain, unspecified (principal); R10.13 Epigastric pain; K80.20 Calculus of gallbladder without cholecystitis without obstruction; K76.0 Fatty (change of) liver, not elsewhere classified; I10 Essential (primary) hypertension; G40.909 Epilepsy, unspecified, not intractable, without status epilepticus; G81.90 Hemiplegia, unspecified affecting unspecified side; F32.9 Major depressive disorder, single episode, unspecified; F41.9 Anxiety disorder, unspecified; Z86.711 Personal history of pulmonary embolism; Z79.01 Long term (current) use of anticoagulants; Z79.899 Other long term (current) drug therapy; Z87.891 Personal history of nicotine dependence
CPT/HCPCS: 71045; 76705; 80048; 80076; 83690; 84484; 85025; 85610; 93005; 96360; 96361; 99285; J7030; A4216

== ENCOUNTER 2020-04-08 14:21 | Outpatient (RCR) | payer MEDICARE, OTHER, SELFPAY ==
[2019-09-09 13:30] VITALS: BMI 31.7
[2020-03-25 16:26] VITALS: BMI 34.2
[2020-03-28 12:09] LABS: International Normalized Ratio 1.7; Prothrombin Time (Protime)PT. 19.7 SECONDS (11.7-14.9)
[2020-04-08 14:36] LABS: Prothrombin Time Fingerstick 15.6 SEC (11.9-14.4)
== END 2020-04-08 18:00 | disposition home or self-care (01) ==
LOC: MTLAB 14:21
PROVIDERS: Family Provider Internal Medicine; PCP Internal Medicine; Referring Provider Nurse Practitioner Family; Visit Provider Nurse Practitioner Family
DX: Z79.01 Long term (current) use of anticoagulants (principal); Z92.29 Personal history of other drug therapy
CPT/HCPCS: 36415; 36416; 85610

== ENCOUNTER 2020-04-17 09:00 | Outpatient (RCR) | payer MEDICARE, OTHER, SELFPAY ==
[2020-03-25 16:26] VITALS: BMI 34.2
--- NOTE | 2020-04-02 13:16 | HP.PTEVAL ---
Patient's Visit Information STEVE WOMACK is a 70 year old M referred to Physical Therapy by DOMENICA Galarza with a diagnosis of L shoulder pain. Date of Evaluation: 04/02/20 Physical Therapist: Jadon Turcios PT, ATC - Visit Plan Frequency: 2-3x /Week Duration: 4-6 Weeks Plan: L shoulder stretching and strengthening, scap stab ex's, UBE, and HEP - Subjective DOS: August 2019. Pt had carpal tunnel surgery at that time due to L elbow and shoulder surgery. The surgeon beleived at that time the surgery would possibly eliminate all pain in L UE. Pt reports all usage with L UE only worsened after his surgery. Pt notes he was unable to toilet, and feed himself due to the pain and weakness. Pt reports he had to seek a second opinion after that surgery due to L hand pain that would not succumb. Pt then had surgery in October 2019 by another surgeon for corrective surgery from the first surgery. Pt reports he has had xrays with his L shoulder and elbow in the past which revealed bone spurs in the L elbow. Pt reports he was I with all self care prior to this surgery. Pt reports he has improved some since the last surgery, but continues to have difficulty with buttoning shirt and tying shoes. Pt notes most IADL's are difficult. Pt reports he has good sensation in L UE with the exception of the tips of his fingers. Pt reports his L shoulder is sore today. Pt is sore on anterior chest region near the origin of the short head of the bicpeps muscle. Sleep difficulty at times secondary to pain. Pt notes he has had PT in [place] prior to coming back home after surgery and coming here to resume it. 0/10 pain in L shoulder at rest,10 /10 pain with movement - Pain L shoulder Pain Intensity (Out of 10): 0 Pain Intensity Range: 10 - Objective Neuro: L UE sensation is WNL to light touch . L biceps tendon reflex= 2/3. L shoulder ROM: flex= 140, abd= 55, ER= 30, IR= WFL. L shoulder MMT: grossly 3/5 and painful with all testing. 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 C/S ROM: Pt is moderately limited in all planes. Increased pain with all movements. Repeated movements: RRIS produced interscapular pain, but no L UE sx's. RFIS also produced interscapular sx's, but no L UE sx's. special testing: Pos HK - Goals Goal 1:: Decrease L shoulder pain x 50% to aid with sleep Goal Time Frame: 4-6 Weeks Goal 2:: Increase L shoulder flex and abd ROM x 40 degrees to aid with IADL's Goal Time Frame: 4-6 Weeks Goal 3:: Increase L shoulder strength x 1 grade to aid with IADL's Goal Time Frame: 4-6 Weeks Goal 4:: I with HEP Goal Time Frame: 4-6 Weeks - Rehabilitation Potential Physical Therapy Diagnosis: Pt has L shoulder pain, weakness, and limited ROM secondary to L shoulder impingement Rehabilitation Potential: Good - Anticipated Interventions Patient/Client Instruction: Educate patient on: Condition, Plan of Care For the Purpose of:: To improve self management Therapeutic Exercise to Include: Strength training, Endurance training, Postural training, Flexibilty training, Active ROM, Scapular Strength/Stabilization Thank you for the opportunity to evaluate your patient. For Medicare and Medicare HMO plans, please review the plan of care and approve it. It will need to be FAXED BACK to us at [phone] for Medicare purposes. For Medicare only, by signing this I certify the plan of care. Please let me know if there are questions or concerns regarding this plan of care. Physician Signature: Date:
--- NOTE | 2020-06-10 08:10 | HP.PT.NRP ---
STEVE WOMACK was seen in my office for initial evaluation on 04/02/20. The following Plan of Care was established for this patient: Initial Frequency: 2-3x /Week Initial Duration: 4-6 Weeks Patient/Client Instruction: Educate patient on: Condition, Plan of Care For the Purpose of:: To improve self management Therapeutic Exercise to Include: Strength training, Endurance training, Postural training, Flexibilty training, Active ROM, Scapular Strength/Stabilization This patient was last seen in our office . Pertinent comments regarding their Physical therapy will appear below: Pt was treated for 5 PT visits for L shoulder pain through the date of 04/17/20. Pt has not returned through this date and will be discontinued at this time. At this point I will be discontinuing this patient from physical therapy. I would be happy to see this patient again in the future if found appropriate by the physician. Thank you! Jadon Turcios, PT, ATC
== END 2020-04-17 19:00 | disposition home or self-care (01) ==
LOC: PT 09:00
PROVIDERS: PCP Internal Medicine; Referring Provider Nurse Practitioner Family; Visit Provider Nurse Practitioner Family
DX: M25.512 Pain in left shoulder (principal); G89.29 Other chronic pain; G56.02 Carpal tunnel syndrome, left upper limb; M48.04 Spinal stenosis, thoracic region
CPT/HCPCS: 97110; 97140; 97161

== ENCOUNTER 2020-04-20 08:06 | Day surgery (SDC) | payer MEDICARE, OTHER, SELFPAY ==
[2020-03-25 16:26] VITALS: BMI 34.2
--- NOTE | 2020-04-14 13:14 | EKG12_ITS ---
Test Reason : PREOP Blood Pressure : / mmHG Vent. Rate : 089 BPM Atrial Rate : 089 BPM P-R Int : 166 ms QRS Dur : 090 ms QT Int : 356 ms P-R-T Axes : 046 -21 022 degrees QTc Int : 433 ms Normal sinus rhythm Normal ECG Confirmed by SYED HALE, ISABELLA ([id number]), editor & co founder DEMETRICE CASTILLO ([id number]) on 04/15/2020 7:21:26 AM Referred By: Mani Griffin Confirmed By:ISABELLA LYNCH MD
[2020-04-14 14:41] LABS: Hematocrit 51.7 % (40-54); Hemoglobin 16.6 g/dL (13.0-16.5); Mean Corp Hgb Conc 32.1 g/dL (32-36); Mean Corpuscular Hgb 29.9 pg (27.0-32.0); Platelet Count 182 K/mm3 (150-450); RBC Distribution Width SD 44.4 fl (35.1-43.9); Red Blood Count 5.56 M/mm3 (4.6-6.2); White Blood Count 4.8 K/mm3 (4.4-11.0)
[2020-04-14 14:50] LABS: Partial Thromboplast Time 33.5 Seconds (24.1-36.2)
[2020-04-14 15:04] LABS: Anion Gap 9 (5-15); BUN 14 mg/dL (7-18); BUN/Creat Ratio 12.6 RATIO (10-20); Calcium,Total 8.8 mg/dL (8.5-10.1); Chloride 105 mmol/L (98-107); Creatinine, Serum 1.11 mg/dL (0.70-1.30); EST Glomerular Filtration Rate 70 mL/min (>60); Est Glom Filt Rate - Afr Amer 84 mL/min (>60); Glucose 96 mg/dL (74-106); Potassium 3.7 mmol/L (3.5-5.1); Sodium Level 139 mmol/L (136-145)
[2020-04-20] VITALS (10 sets, daily range): BP systolic 127–150; BP diastolic 81–93; PULSE 58–86; RESP 16–20; TEMP 36.1–36.6; O2SAT 91–100; BMI 34.3
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
[2020-04-20] MEDS: Lactated Ringers 1,000 ML 100 ML IV ×2 (08:59→11:34)
--- NOTE | 2020-04-20 09:20 | RAD_ITS ---
STUDY: INTRAOPERATIVE CHOLANGIOGRAM. REASON FOR EXAM: Male, 70 years old. ABD PAIN. Laparoscopic cholecystectomy. FLUOROSCOPY TIME (if supplied): ( 27.7 seconds ) minutes/seconds. A cine loop consisting of 184 images was submitted. TECHNIQUE: An intraoperative cholangiogram was performed by the surgeon. COMPARISON: None. FINDINGS: The common bile duct is not dilated. No intraluminal filling defect is seen. There is free flow of contrast into the duodenum. RAD/Cholangiogram/ O R,Initial IMPRESSION: Unremarkable intraoperative cholangiogram. Electronically Signed: Ruddy Hernandez, at 15:14 EDT , Service support ,
[2020-04-20] MEDS: Cefazolin 2 GM in 0.9% Normal Saline 100 ML IV (09:25)
--- NOTE | 2020-04-20 09:32 | DCINST_ITS ---
Discharge Diet: Light diet - advance as tolerated - if you have questions about your diet instructions, please talk to you doctor. Discharge Activity: May Not Drive - for 3-5 days or while taking narcotic pain medicine. May shower in (days): 1 Lifting Restrictions: 10 pounds Call your doctor if your incision/area has: Continuous Slow Oozing, Sudden Increased Bleeding, Increased Pain/ Swelling, Increased Redness, Foul Smelling Discharge Call your doctor if you observe: Fever of 101 or Higher Suture Line Care: Avoid Pulling/Pushing, Avoid Pinching/Bending Additional Dressing/Incision Instructions:: Change or remove dressing in 4 days. Leave steri-strips in place for 1 week. Allergies/Adverse Reactions: Allergies morphine Allergy (Verified 04/20/20 08:25) Nausea PAPERTAPE Adverse Reaction (Uncoded 04/20/20 08:25) Rash Medications to take at Discharge chlorpheniramine maleate 4 mg tablet 4 mg PO Q8H PRN 08/14/17 Handicap Placard See Rx Instructions .ROUTE .MEDSUPPLY #2 ea 11/28/18 warfarin 5 mg tablet 10 mg PO .COMPLEX #90 tab 05/01/19 warfarin 7.5 mg tablet 7.5 mg PO .COMPLEX #90 tab 05/01/19 buspirone 5 mg tablet 5 mg PO DAILY #90 tab 07/12/19 venlafaxine 150 mg capsule,extended release 24 hr 150 mg PO DAILY #90 cap 08/06/19 Diazepam [Valium] 5 mg PO TID PRN #15 tab 09/06/19 Handicap Placard See Rx Instructions .ROUTE .MEDSUPPLY #1 ea 09/09/19 acetaminophen 500 mg tablet 1,000 mg PO .TID PRN tab 09/09/19 oxycodone 5 mg tablet 5 mg PO BID PRN 09/09/19 tizanidine 2 mg tablet 2 mg PO TID PRN #30 tab 09/16/19 lamotrigine 25 mg tablet See Rx Instructions .ROUTE .COMPLEX #90 tab 09/17/19 levetiracetam 1,000 mg tablet 1,000 mg PO BID #180 tab 01/16/20 phenobarbital 32.4 mg tablet 32.4 mg PO Q6H 90 Days #360 tab 02/18/20 Oxycodone HCl/Acetaminophen [Percocet 5/325] 1 tablet PO Q6H PRN PRN 3 Days #8 tablet 04/20/20 The following prescriptions were given: Oxycodone HCl/Acetaminophen [Percocet 5/325] 1 tablet PO Q6H PRN PRN 3 Days #8 tablet PRN Reason: Pain Score 1-10 Transmission Status: Sent to [facility] Primary Care Physician: Yelitza Antonio MD [Primary Care Provider] - Test Results: Test results from this visit will be discussed in further detail at your follow- up appointment, if applicable. Please Follow Up With: Mani Griffin MD - [phone] When: Call for appt. May be phone, virtual, or on-site approx. 10 days
[2020-04-20] MEDS: Sugammadex Sodium 200 MG/2 ML VIAL IV (09:38)
--- NOTE | 2020-04-20 10:10 | GALL_PTH ---
PATIENT: STEVE WOMACK LOC: [facility] [place] U#:[id number] AGE/SX: 70/M ROOM: RE04/20/[address]: Dr. Mani Griffin MD : [id number] BED: DIS: 04/20/2020 SPEC #: [id number] RECD: 04/20/20 11:57 STATUS: JOHNNY KELLY #: [id number] IDALIA: 04/20/20 10:[address]: Mani Griffin DEPT: SURGICAL PATHOLOGY RECD BY: Azeem Seymour ENTERED: 04/20/20 12:23 SP TYPE: GARETH MUNGUIA DR: Dr. Yelitza Antonio MD Tissues: Gallbladder, NOS Procedures: Surgery Specimen Level III HEADER OPERATION: Laparoscopic cholecystectomy with IOC PRE-OP DIAGNOSIS: Cholelithiasis with chronic cholecystitis TISSUE SUBMITTED: Gallbladder MICROSCOPIC DIAGNOSIS Gallbladder, cholecystectomy: Mild chronic cholecystitis and cholelithiasis. SJ:leisa 04/21/20 MICROSCOPIC DESCRIPTION Slides are reviewed. GROSS DESCRIPTION Received is one container labeled with the patient's name and designated gallbladder. The specimen consists of a gallbladder measuring 10 cm in length and up to 6 cm in diameter. The external surface is pink-baker, smooth and glistening for the most part. Focally it is granular, hemorrhagic and contains cautery artifact. The gallbladder is distended with green-yellow mucoid bile and contains multiple brownish-black stones measuring in aggregate 6 x 5.5 x 2 cm and 0.1 to 0.5 cm in greatest dimension. The mucosa is bile-stained and without any mass lesions. The gallbladder wall measures up to 0.2 cm in thickness. Drawing Kiln Supervisor sections from the gallbladder and the cystic duct are submitted in one cassette. / JACQUELINE:leisa 04/20/20 TC:3 CPT: 71023
[2020-04-20 11:01] LABS: Prothrombin Time Fingerstick 12.8 SEC (11.9-14.4)
--- NOTE | 2020-04-20 11:10 | OP.PCM_ITS ---
Problem List (1) Cholelithiasis with chronic cholecystitis Status: Chronic Qualifiers: Report of Operation Date of Procedure: 04/20/20 Pre-Operative Diagnosis: Chronic cholecystitis cholelithiasis Post-Operative Diagnosis: Severe chronic cholecystitis cholelithiasis Surgery/Procedure Performed:: Laparoscopic cholecystectomy with cholangiograms Description of Surgical Findings:: Timeout and informed consent was obtained. 70-year-old gentleman was taken the operating placement table underwent general endotracheal intubation anesthesia. Ancef 2 g were given intravenously preoperatively. The abdomen was sterilely prepped and draped. 0.5% Marcaine was used as a local anesthetic. Skin sites were preanesthetized. A total of 30 cc was used. A supraumbilical vertical incision was created holding sutures of 0 Vicryl placed varies needle inserted saline drop test performed the abdomen was insufflated with CO2 to a pressure of 12 mmHg pressure. 12 mm trocar was inserted. 10 mm laparoscope inserted. No evidence of any trocar injuries. The patient is noted to be significantly heavy with significant amount of fibrofatty tissue particularly in the abdominal area. 5 mm trochars were placed in the epigastric right upper quadrant and right lateral upper quadrant areas. The gallbladder is noted to be markedly edematous. It was grasped and elevated. Blunt dissection was instituted the infundibulum until clearly the cystic artery and cystic duct were identified. A Arnold clamp was introduced and fluoroscopically control cholangiograms were obt ained. This demonstrated free flow into the duodenum no evidence of any filling defects. The Arnold clamp was removed and 2 hemolock clips were placed on the cystic duct stump prior to transecting it. Both an anterior and posterior cystic artery were secured with hemolock clips. The course of the right hepatic artery was identified and carefully preserved. The gallbladder was then tediously dissected free from the liver bed. Significant amount of inflammatory change as well as edema was encountered. Electrocautery was used for hemostasis. The gallbladder was released. The right upper quadrant was irrigated and aspirated free of excess fluid. 2 pieces of fibrillar was placed in the liver bed and portal area to assure hemostasis. The gallbladder is placed in a retrieval bag. The abdomen was allowed to deflate of CO2 through an antiviral valve. Trochars were removed. The fascia at the supraumbilical site had to be incised further to allow for removal of the very large inflamed gallbladder. The fascia was then approximated with a running 0 PDS. Skin edges approximate interrupted 4 Monocryl subdermal stitches. Steri-Strips Telfa OpSite dressings applied. Sponge and instrument and needle counts were reported to the surgeon to be correct. Specimens gallbladder. Drains none. Blood loss minimal. The patient was taken to recovery area in satisfactory addition without apparent complication. Mani Griffin M.D., F.A.C.S. Type of Anesthesia:: General Anesthesiologist: Edwar Tejada
== END 2020-04-20 16:12 | disposition home or self-care (01) ==
LOC: SDC 08:07 → AC 08:07
PROVIDERS: Anesthesiology; PCP Internal Medicine; Referring Provider Surgery; Visit Provider Surgery
PROC: (CPT 47610; principal; 2020-04-20 09:50)
DX: K80.10 Calculus of gallbladder with chronic cholecystitis without obstruction (principal); I10 Essential (primary) hypertension; G40.909 Epilepsy, unspecified, not intractable, without status epilepticus; F32.9 Major depressive disorder, single episode, unspecified; F41.9 Anxiety disorder, unspecified; E66.9 Obesity, unspecified; Z68.34 Body mass index [BMI] 34.0-34.9, adult; Z86.711 Personal history of pulmonary embolism; Z86.718 Personal history of other venous thrombosis and embolism; Z79.01 Long term (current) use of anticoagulants; Z20.828 Contact with and (suspected) exposure to other viral communicable diseases; Z79.899 Other long term (current) drug therapy; Z87.891 Personal history of nicotine dependence
CPT/HCPCS: 00790; 47563; 36415; 36416; 74300; 76000; 80048; 85027; 85610; 85730; 87635; 88304; 93005; C9803; J7120; J2405; U0003

== ENCOUNTER 2020-04-27 08:57 | Outpatient (RCR) | payer MEDICARE, OTHER, SELFPAY ==
[2020-04-20 08:32] VITALS: BMI 34.3
[2020-04-27 12:41] LABS: International Normalized Ratio 1.9; Prothrombin Time (Protime)PT. 21.2 SECONDS (11.7-14.9)
== END 2020-05-25 23:59 ==
LOC: BIMLAB 08:57
PROVIDERS: Family Provider Internal Medicine; PCP Internal Medicine; Referring Provider Nurse Practitioner Family; Visit Provider Nurse Practitioner Family
DX: Z79.01 Long term (current) use of anticoagulants (principal); Z92.29 Personal history of other drug therapy
CPT/HCPCS: 36415; 85610

== ENCOUNTER → 2020-12-14 16:03 | Outpatient (CLI) | payer MEDICARE, OTHER, SELFPAY ==
[2020-12-14 15:25] VITALS: BMI 34.3
[2020-12-14 17:14] LABS: Absolute Neutrophil Count 3.9 X10^3/uL (2.0-7.7); Basophil# 0.04 X10^3/uL; Basophil% 0.6 % (0-1); Hematocrit 49.8 % (40-54); Hemoglobin 16.2 g/dL (13.0-16.5); Mean Corp Hgb Conc 32.5 g/dL (32-36); Mean Corpuscular Hgb 30.7 pg (27.0-32.0); Mean Corpuscular Volume 94.5 fL (80-94); Mean Platelet Vol. 9.5 fl (6.2-12.0); Monocyte# 0.69 X10^3/uL; Monocyte% 10.5 % (0-10); NRBC Flagged by Analyzer 0 % (0-5); Neutrophil # 3.91 X10^3/uL (2.7-7.7); Neutrophil % 59.6 % (47-70); Platelet Count 177 K/mm3 (150-450); RBC Distribution Width CV 13.4 % (11.6-14.6); RBC Distribution Width SD 47.2 fl (35.1-43.9); Red Blood Count 5.27 M/mm3 (4.6-6.2); White Blood Count 6.6 K/mm3 (4.4-11.0)
[2020-12-14 17:20] LABS: International Normalized Ratio 2.3; Prothrombin Time (Protime)PT. 24.3 SECONDS (11.7-14.9)
[2020-12-14 18:01] LABS: ALB/GLOB Ratio 1.1 RATIO (0.9-2.4); AST(SGOT) 23 U/L (15-37); Alanine Aminotransfer ALT/SGPT 33 U/L (16-61); Alkaline Phosphatase 100 U/L (45-117); Anion Gap 9 (5-15); BUN 15 mg/dL (7-18); BUN/Creat Ratio 15.7 RATIO (10-20); Calcium,Total 8.9 mg/dL (8.5-10.1); Chloride 108 mmol/L (98-107); Creatinine, Serum 0.95 mg/dL (0.70-1.30); EST Glomerular Filtration Rate 83 mL/min (>60); Est Glom Filt Rate - Afr Amer 100 mL/min (>60); Globulin 3.6 g/dL (2.2-4.2); Glucose 93 mg/dL (74-106); Potassium 3.9 mmol/L (3.5-5.1); Protein, Total 7.6 g/dL (6.4-8.2); Sodium Level 141 mmol/L (136-145)
[2020-12-15 09:36] LABS: Bacteria 0 SEEN /hpf (None Seen); Mucous, Urine 0 SEEN /hpf (<or=2+); Red Blood Cells-Urine 0 SEEN /hpf (0-5); Squamous Epithelial Cells - UA 0 SEEN /hpf (0-5); White Blood Cells 0 SEEN /hpf (0-5)
[2020-12-15 09:42] LABS: Color, Urine Yellow (Yellow); Glucose, Dipstick Normal (Normal); Ketone-Dipstick Negative (Negative); Leukocyte Esterase-Dipstick Negative /ul (Negative); Nitrite-Dipstick Negative (Negative); Occult Blood-Urine Negative /ul (Negative); Protein-Dipstick 15 mg/dl (Negative); Specific Gravity, Urine 1.025 (1.002-1.030); Urine Bilirubin Dipstick Negative (Negative); Urine Clarity Turbid (Clear); Urine Urobilinogen Normal (Normal)
[2020-12-15 09:50] LABS: Amorphous Sediment 3+
== END ==
PROVIDERS: PCP Internal Medicine; Visit Provider Internal Medicine
DX: R31.9 Hematuria, unspecified (principal); Z79.01 Long term (current) use of anticoagulants; I10 Essential (primary) hypertension
CPT/HCPCS: 36415; 80053; 81001; 85025; 85610

== ENCOUNTER → 2020-12-16 15:01 | Outpatient (CLI) | payer MEDICARE, OTHER, SELFPAY ==
[2020-12-15 11:56] VITALS: BMI 34.3
--- NOTE | 2020-12-16 15:20 | RAD_ITS ---
STUDY: X-RAY - CERVICAL SPINE REASON FOR EXAM: Male, 70 years old. DDD TECHNIQUE: 3 view(s) of the cervical spine were obtained. COMPARISON: None FINDINGS: Normal anterior atlantoaxial articulation. Normal odontoid process. Normal cervical lordosis. There is multi-level endplate spondylosis. There is multi-level degenerative disc disease with multilevel disc space narrowing. The soft tissue structures are unremarkable. RAD/Cerv Spine 2 or 3 Views IMPRESSION: Moderate degenerative changes of the C-spine Electronically Signed: Markell Magaña DO at 1:27 EDT Tel , Service support ,
--- NOTE | 2020-12-16 15:34 | RAD_ITS ---
STUDY: X-RAY - LUMBAR SPINE REASON FOR EXAM: Male, 70 years old. DDD TECHNIQUE: 3 view(s) of the lumbar spine were obtained. COMPARISON: None FINDINGS: Normal lumbar lordosis. There is no substantial scoliosis. There is a normal alignment of the vertebrae. Normal vertebral bodies and endplates. Normal disc space heights except to note narrowing of the intervertebral disc space at L5 -S1. At this level there is a spondylolysis with first degree spondylolisthesis of L5 on S1. Moderate hypertrophic changes seen at this level in the posterior elements. Moderate hypertrophic changes involving the upper lumbar spine The soft tissue structures are unremarkable. RAD/Lumbar Spine 2 or 3 Views IMPRESSION: Narrowing of the intervertebral disc space at L5-S1 with first degree spondylolisthesis due to pars articularis defect. Electronically Signed: Milagro Sheikh, at 8:54 EDT Tel , Service support ,
== END ==
PROVIDERS: PCP Internal Medicine; Referring Provider Anesthesiology Pain Medicine; Visit Provider Anesthesiology Pain Medicine
DX: M50.30 Other cervical disc degeneration, unspecified cervical region (principal); M51.37 Other intervertebral disc degeneration, lumbosacral region
CPT/HCPCS: 72040; 72100

== ENCOUNTER → 2021-01-05 15:54 | Outpatient (CLI) | payer MEDICARE, OTHER, SELFPAY ==
[2020-12-15 11:56] VITALS: BMI 34.3
[2021-01-05 17:48] LABS: PSA,Total - Annual Screen 1.48 ng/mL (0.00-4.00)
== END ==
PROVIDERS: PCP Internal Medicine; Referring Provider Nurse Practitioner Adult Health; Visit Provider Nurse Practitioner Adult Health
DX: Z12.5 Encounter for screening for malignant neoplasm of prostate (principal)
CPT/HCPCS: 36415; 84153; G0103

== ENCOUNTER → 2021-01-14 13:59 | Outpatient (CLI) | payer MEDICARE, OTHER, SELFPAY ==
[2020-12-15 11:56] VITALS: BMI 34.3
--- NOTE | 2021-01-14 14:01 | CT_ITS ---
STUDY: CT ABDOMEN AND PELVIS WITH AND WITHOUT CONTRAST REASON FOR EXAM: Male, 70 years old. GROSS HEMATURIA RADIATION DOSAGE (If Supplied By Facility): CTDIvol = ( 22.74 ) mGy, DLP = ( 3738.85 ) mGycm TECHNIQUE: Transaxial images were obtained from the dome of the diaphragm to the symphysis pubis without oral contrast. IV 100mL Isovue-300 was administered. Sagittal and coronal images were reconstructed. Individualized dose optimization techniques were used for this CT. COMPARISON: None. FINDINGS: Minimal degree of increased markings at the lung bases slightly more prominent on the right side suggestive of mild basilar scarring. The visualized portions of the heart are within normal limits. There is decreased attenuation of the liver consistent with steatosis. The patient is status post cholecystectomy. Normal spleen. Normal pancreas. Normal bilateral adrenal glands. There is a 5 mm calculus in the upper pole calyx of the right kidney. There is a 2.2 cm x 2.4 cm cyst in the upper medial aspect of the left kidney. Normal visualized stomach. Normal small intestine. There are scattered colonic diverticula consistent with diverticulosis. The appendix is visualized and appears normal. Normal abdominal aorta. There is an IVC filter in place. Normal retroperitoneum. Normal urinary bladder. Normal abdominal wall. There are diffuse degenerative changes of the visualized lumbar spine. Spondylolysis of the pars interarticularis at the L5 vertebrae. CT/CT Abd/Pelvis W/WO Contrast IMPRESSION: Small left renal cyst. 5 mm nonobstructive calculus in the upper pole calyx of the right kidney. Sigmoid diverticulosis. Electronically Signed: Ruddy Hernandez MD at 15:30 EDT , Service support ,
== END ==
PROVIDERS: PCP Internal Medicine; Referring Provider Nurse Practitioner Adult Health; Visit Provider Nurse Practitioner Adult Health
DX: N20.0 Calculus of kidney (principal); N28.1 Cyst of kidney, acquired; K57.30 Diverticulosis of large intestine without perforation or abscess without bleeding; R31.0 Gross hematuria
CPT/HCPCS: 74178; Q9967

== ENCOUNTER → 2021-02-16 09:33 | Outpatient (CLI) | payer MEDICARE, OTHER, SELFPAY ==
[2021-02-16 10:17] LABS: Hematocrit 47.5 % (40-54); Hemoglobin 15.5 g/dL (13.0-16.5); Mean Corp Hgb Conc 32.6 g/dL (32-36); Mean Corpuscular Hgb 30.7 pg (27.0-32.0); Mean Corpuscular Volume 94.1 fL (80-94); Mean Platelet Vol. 9.4 fl (6.2-12.0); Platelet Count 160 K/mm3 (150-450); RBC Distribution Width CV 13.2 % (11.6-14.6); RBC Distribution Width SD 45.6 fl (35.1-43.9); Red Blood Count 5.05 M/mm3 (4.6-6.2)
[2021-02-16 10:26] LABS: International Normalized Ratio 1.8; Prothrombin Time (Protime)PT. 19.8 SECONDS (11.7-14.9)
[2021-02-16 10:45] LABS: Vitamin B12 337 pg/mL (211-911)
[2021-02-16 10:59] LABS: ALB/GLOB Ratio 1.1 RATIO (0.9-2.4); AST(SGOT) 28 U/L (15-37); Alanine Aminotransfer ALT/SGPT 24 U/L (16-61); Albumin, Serum 3.7 g/dL (3.2-5.0); Alkaline Phosphatase 82 U/L (45-117); Anion Gap 6 (5-15); BUN 11 mg/dL (7-18); BUN/Creat Ratio 12.2 RATIO (10-20); Calcium,Total 8.6 mg/dL (8.5-10.1); Chloride 110 mmol/L (98-107); EST Glomerular Filtration Rate 89 mL/min (>60); Est Glom Filt Rate - Afr Amer 107 mL/min (>60); Globulin 3.4 g/dL (2.2-4.2); Glucose 108 mg/dL (74-106); Potassium 3.8 mmol/L (3.5-5.1); Protein, Total 7.1 g/dL (6.4-8.2); Sodium Level 142 mmol/L (136-145)
[2021-02-16 11:03] LABS: PSA,Total- Diagnostic 0.78 ng/mL (0.0-4.0)
[2021-02-19 16:29] LABS: KEPPRA (LEVETIRACETAM) 22.7 ug/mL (10.0-40.0); Vitamin B1, Thiamine 117.9 nmol/L (66.5-200.0)
== END ==
PROVIDERS: PCP Internal Medicine; Referring Provider Psychiatry & Neurology Neurology; Visit Provider Psychiatry & Neurology Neurology
DX: G40.909 Epilepsy, unspecified, not intractable, without status epilepticus (principal); G31.84 Mild cognitive impairment of uncertain or unknown etiology; I10 Essential (primary) hypertension; R31.9 Hematuria, unspecified; Z79.01 Long term (current) use of anticoagulants
CPT/HCPCS: 36415; 80053; 80177; 80184; 82140; 82607; 82746; 84153; 84425; 84443; 85027; 85610

== ENCOUNTER 2021-02-25 12:30 | Outpatient (RCR) | payer MEDICARE, OTHER, SELFPAY ==
[2020-12-15 11:56] VITALS: BMI 34.3
--- NOTE | 2020-12-21 17:31 | HP.PTEVAL_ITS ---
Patient's Visit Information STEVE WOMACK is a 70 year old M referred to Physical Therapy by Dr. Yelitza Antonio MD with a diagnosis of L rotator cuff repair 09/01/20. Date of Evaluation: 12/21/20 Physical Therapist: Jadon Turcios PT, ATC - Visit Plan Frequency: 2-3x /Week Duration: 6 Weeks Plan: L shoulder AROM/stretching, rot cuff strengthening, scap stab ex's, UBE, and HEP - Subjective DOS: 09/01/20. Pt had a L rotator cuff repair at that time. Pt reports he has had chronic L shoulder pain for several years. Pt notes he had multiple cortisone injections but the pain always returned until he had this surgery. Pt reports he feels much better now since having the surgery. Pt notes he still has pain, but has been told its going to take a year to recover. Pt had PT while in [place] for the past several months. Pt notes he has also really become unsteady on his feet as he has been very un active over this time span. Pt denies having L UE tingling or numbness at this time. Pt reports occasional sleep difficulty at this time secondary to pain. 0/10 pain at rest, 3/10 pain at worst (when he reaches across his body) - Pain L shoulder pain Pain Intensity (Out of 10): 0 Pain Intensity Range: 3 - Objective Neuro: R UE is hyposensitive throughout. L UE is WNL to light touch. MMT: L shoulder is grossly 4-/5 throughout. rom: L shouler flex= 120, abd= 75, ER= 30, IR WNL - Goals Goal 1:: Decrease L shoulder pain x 50% to aid with sleep Goal Time Frame: 4-6 Weeks Goal 2:: Increase L shoulder strength x 1 grade to aid with IADL's Goal Time Frame: 4-6 Weeks Goal 3:: Increase L shoulder flex and abd ROM x 30 degrees to aid with overhead activity Goal Time Frame: 4-6 Weeks Goal 4:: I with HEP Goal Time Frame: 4-6 Weeks - Rehabilitation Potential Physical Therapy Diagnosis: L shoulder pain, weakness, and limited ROM secondary to L shoulder rot cuff repair Rehabilitation Potential: Good - Anticipated Interventions Patient/Client Instruction: Educate patient on: Condition, Plan of Care For the Purpose of:: To improve self management Therapeutic Exercise to Include: Strength training, Endurance training, Flexibilty training, Active ROM, Scapular Strength/Stabilization For the Purpose of:: To decrease pain, To increase ROM, To improve muscle performance and motor function Cryotherapy (ice pack, ice massage): Yes For the Purpose of:: To decrease pain Thank you for the opportunity to evaluate your patient. For Medicare and Medicare HMO plans, please review the plan of care and approve it. It will need to be FAXED BACK to us at [phone] for Medicare purposes. For Medicare only, by signing this I certify the plan of care. Please let me know if there are questions or concerns regarding this plan of care. Physician Signature: Date:
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
--- NOTE | 2021-02-25 13:46 | HP.PTDCS(2) ---
It has been my pleasure to treat STEVE WOMACK referred by Dr. Yelitza Antonio MD, with the diagnosis of Unsteady gait for a total of 10 visit(s). Discharge Date: Please see the following information for a summary of their discharge status. Subjective: Pt reports he has noticed very little improvements with LE strength and balance. % Improvement: 10 Objective/Function/Assessment: FGA . Pt is able to ambulate greater that 1000 feet with QC and SBA. Pt is able to negotiate 1 flight of stairs with ease, but requires 1 HR at all times. Pt is I with HEP Patient Goals: Improve Mobility, Improve Function, Walk Normal, Maneuver Steps Goal 1:: Increase FGA score x 5-10 points to aid with preventing future LOB Goal Progress: Goal Met Goal 2:: Pt will be able to negotiate 1 flight of stairs with no UE assistance to aid with I at home Goal Progress: Progressing Goal 3:: Pt will be able to ambulate 1000' with SBA and QC to aid with community ambulation Goal Progress: Goal Met Goal 4:: I with HEP Goal Progress: Goal Met Plan: Discontinue to HEP If there are questions or concerns regarding this patient's physical therapy, please feel free to call me at [phone]. Thank you for the referral of this patient. Sincerely, Jadon Turcios, PT, ATC Balance/Special Test Scores - Balance/Special Test Scores Functional Gait Assessment Score: 21 % Disability: 30.0000
--- NOTE | 2021-02-25 14:02 | HP.PTDCSUM ---
It has been my pleasure to treat STEVE WOMACK referred by Dr. Yelitza Antonio MD, with the diagnosis of L rotator cuff repair 09/01/20 for a total of 20 visit(s). Discharge Date: Please see the following information for a summary of their discharge status. Subjective: Mild pain this date. Pt reports he doesnt feel like therapy is helping much anymore. L shoulder pain Pain Intensity (Out of 10): 2 % Improvement: 30 Objective/Function: L shoulder pain 2/10. No sleep difficulty at this time. L shoulder MMT: flex is 4/5. All other measurements 5/5 throughout. L shoulder ROM: flex= 150, abd= 130. Pt is I with HEP Goal 1:: Decrease L shoulder pain x 50% to aid with sleep Goal Progress: Goal Met Goal 2:: Increase L shoulder strength x 1 grade to aid with IADL's Goal Progress: Goal Met Goal 3:: Increase L shoulder flex and abd ROM x 30 degrees to aid with overhead activity Goal Progress: Goal Met Goal 4:: I with HEP Goal Progress: Goal Met Plan: Discontinue to HEP If there are questions or concerns regarding this patient's physical therapy, please feel free to call me at [phone]. Thank you for the referral of this patient. Sincerely, Jadon Turcios, PT, ATC Balance/Gait/Functional tests - Balance/Special Test Scores Lower Extremity Functional Score: 43 Quick DASH Score: 77.2729
== END 2021-02-25 19:00 | disposition home or self-care (01) ==
LOC: PT 12:30
PROVIDERS: PCP Internal Medicine; Referring Provider Internal Medicine; Visit Provider Internal Medicine
DX: R26.89 Other abnormalities of gait and mobility (principal)
CPT/HCPCS: 97110; 97161; 97164

== ENCOUNTER 2021-03-05 15:50 | Outpatient (RCR) | payer MEDICARE, OTHER, SELFPAY ==
[2021-02-26 12:20] LABS: International Normalized Ratio 1.6; Prothrombin Time (Protime)PT. 18.5 SECONDS (11.7-14.9)
[2021-03-05 17:44] LABS: International Normalized Ratio 1.9; Prothrombin Time (Protime)PT. 21.3 SECONDS (11.7-14.9)
== END 2021-03-05 18:00 | disposition home or self-care (01) ==
LOC: MTLAB 15:50
PROVIDERS: PCP Internal Medicine; Referring Provider Nurse Practitioner Family; Visit Provider Nurse Practitioner Family
DX: Z79.01 Long term (current) use of anticoagulants (principal)
CPT/HCPCS: 36415; 85610

== ENCOUNTER → 2021-03-12 14:03 | Outpatient (CLI) | payer MEDICARE, OTHER, SELFPAY | PROVIDERS: PCP Internal Medicine; Referring Provider Physician Assistant; Visit Provider Physician Assistant | DX: U07.1 COVID-19 (principal) | CPT/HCPCS: 87635; U0003 ==

== ENCOUNTER 2021-03-16 16:04 | Outpatient (CLI) | payer MEDICARE, OTHER, SELFPAY ==
[2021-03-16 16:26] VITALS: BP 121/76; PULSE 90; RESP 20; TEMP 37.2; O2SAT 94; BMI 33.9
[2021-03-16] MEDS: 0.9% Saline Lock 10 ML Syringe IV (16:26)
[2021-03-16 16:55] VITALS: BP 112/67; PULSE 84; RESP 18; TEMP 37.3; O2SAT 91
[2021-03-16 18:18] VITALS: BP 122/77; PULSE 82; RESP 18; TEMP 37.2; O2SAT 97
== END 2021-03-16 18:05 | disposition home or self-care (01) ==
LOC: ICUOUT 16:05 → MS3 16:07
PROVIDERS: PCP Internal Medicine; Referring Provider Nurse Practitioner Adult Health; Visit Provider Nurse Practitioner Adult Health
DX: Z23 Encounter for immunization (principal); U07.1 COVID-19
CPT/HCPCS: J7050; M0243; Q0245; A4216; Q0244

== ENCOUNTER 2021-03-17 10:28 | Inpatient (IN) | payer MEDICARE, OTHER, SELFPAY ==
[2021-03-17] VITALS (12 sets, daily range): BP systolic 109–135; BP diastolic 74–95; PULSE 71–96; RESP 16–20; TEMP 36.6–36.8; O2SAT 87–97; BMI 33.9; BMI 34.3
--- NOTE | 2021-03-17 10:57 | EKG12_ITS ---
Test Reason : SOB Blood Pressure : / mmHG Vent. Rate : 085 BPM Atrial Rate : 085 BPM P-R Int : 174 ms QRS Dur : 104 ms QT Int : 380 ms P-R-T Axes : 048 -15 023 degrees QTc Int : 452 ms Normal sinus rhythm Normal ECG Confirmed by SUSAN HALE, BEATRIZ ([id number]), web content editor JENNIFER MACKAY ([id number]) on 03/18/2021 1:48:39 PM Referred By: TYESHA Confirmed By:BEATRIZ DAVIS MD
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
[2021-03-17] MEDS: dexAMETHasone 4 MG Tablet 6 MG PO (12:02)
--- NOTE | 2021-03-17 12:30 | RAD_ITS ---
STUDY: X-RAY CHEST REASON FOR EXAM: Male, 70 years old. covid 19 . Decreased pulse oximetry. TECHNIQUE: Single AP portable view of the chest. COMPARISON: Comparison is made with prior study dated 03/14/2020. FINDINGS: EKG electrodes are seen. Patchy bibasilar infiltrates. There is no demonstrated pleural abnormality. Normal size heart. Normal mediastinum and rakesh. Normal visualized pulmonary arteries. There is atherosclerotic tortuosity of the aortic arch and descending thoracic aorta. There are diffuse degenerative changes of the visualized thoracic spine. Prior ORIF of the right clavicle. There is no demonstrated abnormality of the visualized soft tissue structures of the upper abdomen. RAD/Chest 1 View (Portable) IMPRESSION: Patchy bibasilar infiltrates. Electronically Signed: Ruddy Hernandez MD at 12:46 EDT , Service support ,
[2021-03-17 12:31] LABS: Absolute Lymphocyte Count 0.81 X10^3/uL (0.83-4.51); Absolute Neutrophil Count 3.3 X10^3/uL (2.0-7.7); Basophil# 0.01 X10^3/uL; Basophil% 0.2 % (0-1); Hematocrit 46.9 % (40-54); Hemoglobin 15.6 g/dL (13.0-16.5); Lymphocyte # 0.81 X10^3/ul (0.83-4.51); Lymphocyte % 17.6 % (19-41); Mean Corp Hgb Conc 33.3 g/dL (32-36); Mean Corpuscular Hgb 30.4 pg (27.0-32.0); Mean Corpuscular Volume 91.4 fL (80-94); Mean Platelet Vol. 9.4 fl (6.2-12.0); Monocyte# 0.51 X10^3/uL; Monocyte% 11.1 % (0-10); NRBC Flagged by Analyzer 0 % (0-5); Neutrophil # 3.26 X10^3/uL (2.7-7.7); Neutrophil % 70.9 % (47-70); Platelet Count 123 K/mm3 (150-450); RBC Distribution Width CV 13.8 % (11.6-14.6); RBC Distribution Width SD 47.3 fl (35.1-43.9); Red Blood Count 5.13 M/mm3 (4.6-6.2); White Blood Count 4.6 K/mm3 (4.4-11.0)
[2021-03-17 12:49] LABS: ALB/GLOB Ratio 0.8 RATIO (0.9-2.4); AST(SGOT) 38 U/L (15-37); Alanine Aminotransfer ALT/SGPT 33 U/L (16-61); Albumin, Serum 3.4 g/dL (3.2-5.0); Alkaline Phosphatase 124 U/L (45-117); Anion Gap 6 (5-15); BUN 16 mg/dL (7-18); BUN/Creat Ratio 13.9 RATIO (10-20); Calcium,Total 8.3 mg/dL (8.5-10.1); Chloride 100 mmol/L (98-107); Creatinine, Serum 1.15 mg/dL (0.70-1.30); EST Glomerular Filtration Rate 67 mL/min (>60); Est Glom Filt Rate - Afr Amer 81 mL/min (>60); Glucose 110 mg/dL (74-106); Potassium 3.7 mmol/L (3.5-5.1); Protein, Total 7.4 g/dL (6.4-8.2); Sodium Level 135 mmol/L (136-145); Troponin-I HS 9 pg/mL (3.0-78.0)
[2021-03-17 12:51] LABS: Lactic Acid 1.3 mmol/L (0.4-1.9)
[2021-03-17 12:53] LABS: International Normalized Ratio 2.6; Partial Thromboplast Time 64.7 Seconds (24.1-36.2); Prothrombin Time (Protime)PT. 27.3 SECONDS (11.7-14.9)
--- NOTE | 2021-03-17 14:06 | ED.RN ---
THIS RN SPOKE WITH PT'S EUGENE. WANTS PT TO GET ADMITTED, STATING HE CANNOT TAKE CARE OF HIMSELF AT HOME. PT ABLE TO MAKE DECISIONS AT THIS TIME, AND REFUSING TO GET ADMITTED. EXPLAINED TO THAT PT IS ABLE TO MAKE DECISIONS FOR HIMSELF AT THIS TIME. DR LEDEZMA SPOKE WITH PT AND FAMILY EXPLAINING THAT SINCE PT IS ABLE TO MAKE DECISIONS FOR HIMSELF AT THIS TIME, THAT WE CANNOT FORCE HIM TO STAY. PT WOULD LIKE SOME TIME TO ENCOURAGE PT TO STAY. PT CURRENTLY ON PHONE WITH FAMILY. WAITING ON DECISION FROM PT AT THIS TIME.
--- NOTE | 2021-03-17 14:35 | ED.RN ---
PT STATING HE IS WANTING TO GO HOME. DR LEDEZMA MADE AWARE. PT TO GO HOME ON OXYGEN
--- NOTE | 2021-03-17 14:44 | ED.RN ---
DR LEDEZMA WENT IN TO DC PATIENT, PT NOW AGREEING TO ADMISSION. 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
--- NOTE | 2021-03-17 15:04 | NURSING ---
MED SURG RENUKA KISER 19, ACUTE HYPOXEMIC RESP FAILURE
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
[2021-03-17 17:01] LABS: Fibrinogen 598 mg/dl (203-444)
--- NOTE | 2021-03-17 17:01 | PCS.PANDOC ---
PANDEMIC DOCUMENTATION INITIATED: Date: 02/08/2021 Time: 189903/17/21 1646
[2021-03-17 17:27] LABS: CPK Total, Creatine Kinase 112 U/L (39-308); LDH 289 U/L (87-241)
[2021-03-17] MEDS: Phenobarbital 32.4 MG Tablet PO ×2 (18:13→23:34)
[2021-03-17] MEDS: 0.9% Saline Lock 10 ML Syringe IV (18:16)
[2021-03-17 19:46] LABS: Procalcitonin 0.72 ng/mL (0.00-0.09)
[2021-03-17] MEDS: Gabapentin 100 MG Capsule 200 MG PO (21:08)
[2021-03-17] MEDS: levETIRAcetam 1,000 MG Tablet 1000 MG PO (21:08)
[2021-03-18 00:45] VITALS: PULSE 62
[2021-03-18 02:49] VITALS: BP 114/77; PULSE 71; RESP 18; TEMP 36.6; O2SAT 95
[2021-03-18 04:19] VITALS: PULSE 67
[2021-03-18] MEDS: Phenobarbital 32.4 MG Tablet PO ×2 (05:36→11:36)
[2021-03-18 06:59] LABS: Absolute Lymphocyte Count 0.75 X10^3/uL (0.83-4.51); Absolute Neutrophil Count 1.3 X10^3/uL (2.0-7.7); Basophil# 0.01 X10^3/uL; Basophil% 0.4 % (0-1); Hematocrit 44.7 % (40-54); Hemoglobin 14.5 g/dL (13.0-16.5); Lymphocyte # 0.75 X10^3/ul (0.83-4.51); Lymphocyte % 30.7 % (19-41); Mean Corp Hgb Conc 32.4 g/dL (32-36); Mean Corpuscular Volume 92.4 fL (80-94); Mean Platelet Vol. 10.6 fl (6.2-12.0); Monocyte% 16.4 % (0-10); NRBC Flagged by Analyzer 0 % (0-5); Neutrophil # 1.27 X10^3/uL (2.7-7.7); Neutrophil % 52.1 % (47-70); Platelet Count 128 K/mm3 (150-450); RBC Distribution Width CV 13.6 % (11.6-14.6); RBC Distribution Width SD 46.5 fl (35.1-43.9); Red Blood Count 4.84 M/mm3 (4.6-6.2); White Blood Count 2.4 K/mm3 (4.4-11.0)
[2021-03-18 07:33] LABS: ALB/GLOB Ratio 0.7 RATIO (0.9-2.4); AST(SGOT) 35 U/L (15-37); Alanine Aminotransfer ALT/SGPT 29 U/L (16-61); Albumin, Serum 2.8 g/dL (3.2-5.0); Alkaline Phosphatase 103 U/L (45-117); Anion Gap 6 (5-15); BUN 16 mg/dL (7-18); BUN/Creat Ratio 20.2 RATIO (10-20); Calcium,Total 8.2 mg/dL (8.5-10.1); Chloride 104 mmol/L (98-107); Creatinine, Serum 0.79 mg/dL (0.70-1.30); EST Glomerular Filtration Rate 103 mL/min (>60); Est Glom Filt Rate - Afr Amer 124 mL/min (>60); Estimated Creatinine Clearance 75.44 ml/min; Globulin 3.8 g/dL (2.2-4.2); Glucose 114 mg/dL (74-106); Protein, Total 6.6 g/dL (6.4-8.2); Sodium Level 136 mmol/L (136-145)
[2021-03-18] MEDS: Gabapentin 100 MG Capsule 200 MG PO (08:21)
[2021-03-18] MEDS: 0.9% Saline Lock 10 ML Syringe IV (08:25)
[2021-03-18 08:36] VITALS: BP 113/66; PULSE 71; RESP 18; TEMP 36.7; O2SAT 95
[2021-03-18] MEDS: Lactulose 20 GM/30 ML UDC 10 GM PO (08:40)
[2021-03-18] MEDS: dexAMETHasone 10 MG/ML Vial 6 MG IV (08:41)
[2021-03-18] MEDS: levETIRAcetam 1,000 MG Tablet 1000 MG PO (08:41)
[2021-03-18] MEDS: Venlafaxine XR 150 MG Capsule PO (08:41)
[2021-03-18 09:12] VITALS: O2SAT 95
--- NOTE | 2021-03-18 10:20 | CASEMGMT ---
Addendum entered by Rina Robbins 03/18/21 11:39: TC to pt , Nicol. She states that pt was first tested at 's office. Provided her with a list of local in network DME companies. She chooses [employer]. Original Note: EUGENIA HENDRIX Assessment: Face to Face with pt for initial transition planning/care coordination assessment. EUGENIA HENDRIX introduced self and role at [facility], pt voices understanding and consents to assessment. Pt is A/O x4 and answers all questions appropriately at this time. Pt lying in bed with O2 on in no distress. Care providers, pharmacy, and demographics verified/updated. Admitting Dx: Acute COVID 19 with hypoxia PCP:[facility]: Pt denies. Preferred Pharmacy: [facility] Insurance: [facility], [employer] Prescription Benefit: yes LW/HPOA: Pt states he has a LW/DPOA and his DPOA is his Nicol Buck. Pt is aware this is not on file at [facility] and it may be brought in to be scanned into the chart. LNOK: Nicol Buck, ; Josselin Latrice, dtr Living Arrangements: Pt lives with and a grandson Congregation (22yo) and a 13 year old granddtr in a single story condo with a basement that he uses regularly. It is uncertain from the conversation if the grandchildren live there are are only staying there while they have COVID. Pt reports he is I in ADL's and denies concerns at home. Transportation: Pt transports pt to medical appts or he uses the hospital van. DME/HHC/SNF: Pt has a pulse ox, cane, walker, chair lift on steps to the basement with a hand rail. Pt states he has had [facility] HHC and also HHC in [place] when he was staying with his dtr after a surgery. Pt denies hx of SNF stays. Pt reports all members in his household are covid positive. He is not sure where his first test was provided at. He states he has family who can bring him groceries and supplies while in quarantine. Provided patient with a list of local in network DME providers, pt defers this to his and asks EUGENIA HENDRIX to call her. Pt states no concerns with going home at time of dc. Pt states no further concerns/needs. CM to follow. Advised pt to ask CM if any further question/concerns/needs arise, voices understanding. Pt Goal: Home Plan: Home
[2021-03-18] MEDS: Furosemide 40 MG/4 ML Vial IV (11:35)
--- NOTE | 2021-03-18 11:43 | CASEMGMT ---
Social Work Note Per cutter grinder questions, pt has completed HCPOA and LW and provided copies to [facility]. SW reviewed chart, no copies found on chart. RN CM updated pt during assessment that copies are not on file at [facility] and pt may bring in copies. Violet Glover CORRECTIONAL CASEWORK SPECIALIST, [facility] [employer] [employer]
--- NOTE | 2021-03-18 13:16 | PCM.DC ---
Discharge Instructions Diet Discharge Diet: 2000 mg Sodium Diet Activity Discharge Activity: Return to Normal Activity Follow Up Care Test Results: Test results from this visit will be discussed in further detail at your follow-up appointment, if applicable. Discharge Plan Admission Admit Date/Time: 03/17/21 14:51 Primary Reason for Your Visit: Acute COVID-19 pneumonia/hypoxia Attending Provider: Zuly Smith Primary Care Provider: Yelitza Antonio Instructions Additional Instructions / Restrictions: You are being discharged with oxygen. Continue to use your oxygen all the time. Continue to use your incentive spirometer. Continue to remain active and eat healthy. Let your doctor know if you develop fever >101.3F or have progressive worsening shortness of breath. Follow-up with your primary care doctor to have your continued oxygen use reevaluated. Be careful of going near open flames whilst on oxygen. Complete your Decadron as prescribed. Continue to use your inhaler as needed for shortness of breath. Continue to quarantine for 20 days total from the start of your symptoms. Discharge Orders/Prescriptions Prescriptions: New dexamethasone 6 MG tablet 6 mg PO DAILY Qty: 5 RF: 0 ondansetron [ondansetron] 4 MG tablet 4 mg PO Q6H PRN PRN (Reason: Nausea) Qty: 15 RF: 0 warfarin [Jantoven] 7.5 mg Tablet 7.5 mg PO SuMoTuThFrSa@1700 Qty: 0 RF: 0 Continued (DME) Handicap Placard See Rx Instructions .Route .MEDSUPPLY Qty: 1 RF: 0 tizanidine 2 mg tablet 2 mg PO TID PRN (Reason: muscle spasticity) Qty: 60 RF: 1 docusate sodium 100 mg capsule 100 mg PO DAILY PRNRF: 0 buprenorphine [Butrans] 5 mcg/hour patch weekly 1 patch transdermal QWEEK RF: 0 levetiracetam 1,000 mg tablet 1,000 mg PO BID Qty: 180 RF: 3 warfarin 7.5 mg tablet 7.5 mg PO DAILY Qty: 90 RF: 3 lansoprazole 30 mg capsule,delayed release(DR/EC) 30 mg PO DAILY Qty: 90 RF: 3 (DME) Ankle Brace Misc See Rx Instructions .ROUTE .MEDSUPPLY Qty: 1 RF: 0 (DME) cane Device See Rx Instructions .ROUTE .MEDSUPPLY Qty: 1 RF: 0 phenobarbital 32.4 mg tablet 32.4 mg PO Q6H 90 Days Qty: 360 RF: 2 gabapentin 100 mg capsule 200 mg PO BID Qty: 360 RF: 0 warfarin 10 mg tablet 10 mg PO .qwednesday Qty: 30 RF: 1 lactulose 10 gram/15 mL solution 15 ml PO DAILY Qty: 473 RF: 3 venlafaxine 150 mg capsule,extended release 24hr 150 mg PO DAILY Qty: 90 RF: 3 promethazine 25 mg tablet 25 mg PO TID PRN (Reason: nausea and vomiting) Qty: 30 RF: 1 Referrals / Follow Up: Yelitza Antonio MD [Primary Care Provider] - As Needed Disposition Disposition (needs filled in before D/C Order can be placed): Home, Self Care
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
[2021-03-18 14:18] LABS: International Normalized Ratio 3.3; Prothrombin Time (Protime)PT. 32.5 SECONDS (11.7-14.9)
--- NOTE | 2021-03-18 14:48 | CHAPLAIN ---
Type of Pastoral Visit ___ Initial Visit ___ Follow-up Visit ___ On-call Visit ___ General Patient Visit ___ Spiritual Assessment ___ Family Conference ___ Bereavement ___ Rapid Response ___ Code Blue ___ Other (describe below) Pastoral Care Referral From ___ Patient ___ Family ___ Nurse ___ Physician ___ Marketing Analytics Lead ___ Feed Preparation Operator ___ Other (describe below) Sacrament/Intervention ___ Active listening ___ Anointing ___ Jehovah'S Witness ___ Bereavement ___ Communion ___ Tavia exploration ___ ___ Life review ___ Prayer ___ Reconciliation ___ Sacrament of Sick ___ Supportive presence ___ Wedding ___ Other (describe below) Pastoral Comments unable to reach patient by phone so card was left to offer support
[2021-03-18 14:49] VITALS: O2SAT 86; O2SAT 88; O2SAT 92
--- NOTE | 2021-03-18 15:21 | CASEMGMT ---
Pt qualifies for home O2. [facility] Maria Del Rosario aware of referral and patient was given a portable tank from [employer].
--- NOTE | 2021-03-19 15:35 | CASEMGMT ---
EUGENIA HENDRIX Discharge Follow Up Phone Call: MAUREEN: Ronit Strata:2 Call Date: 03/19/21 Discharge Date: 03/18/21 Time of Call:1532 Duration:3 min Admitting Dx:COVID 19 EUGENIA HENDRIX completed follow up phone call after recent hospitalization. Pt answered the phone. She states pt is sleeping. She states he seems about the same. He has picked up his new rx, his O2 was delivered. There is currently no appt set up with Dr. Antonio. Reviewed quarantining time frame with her. She denies further questions or concerns regarding dc instructions or medications.
== END 2021-03-18 15:47 | disposition home or self-care (01) | DRG 177 ==
LOC: ED 14:46 → MS3 15:12
PROVIDERS: Admitting Provider Internal Medicine; Emergency Provider Emergency Medicine; PCP Internal Medicine; Visit Provider Internal Medicine
DX: U07.1 COVID-19 (principal); J12.82 Pneumonia due to coronavirus disease 2019; J96.01 Acute respiratory failure with hypoxia; G81.91 Hemiplegia, unspecified affecting right dominant side; I10 Essential (primary) hypertension; G40.909 Epilepsy, unspecified, not intractable, without status epilepticus; M25.561 Pain in right knee; G89.29 Other chronic pain; F32.9 Major depressive disorder, single episode, unspecified; F41.9 Anxiety disorder, unspecified; F17.290 Nicotine dependence, other tobacco product, uncomplicated; Z79.01 Long term (current) use of anticoagulants; Z79.891 Long term (current) use of opiate analgesic; Z79.899 Other long term (current) drug therapy; Z86.711 Personal history of pulmonary embolism; Z87.820 Personal history of traumatic brain injury
CPT/HCPCS: 36415; 71045; 80053; 82550; 83605; 83615; 84145; 84484; 85025; 85384; 85610; 85730; 86140; 87449; 93005; 94667; 99251; 99285; J7050; M0243; A4216; G0463; J1940; Q0244

== ENCOUNTER → 2021-03-24 14:57 | Outpatient (CLI) | payer MEDICARE, OTHER, SELFPAY ==
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
== END ==
PROVIDERS: PCP Internal Medicine; Referring Provider Psychiatry & Neurology Neurology; Visit Provider Psychiatry & Neurology Neurology
DX: G40.909 Epilepsy, unspecified, not intractable, without status epilepticus (principal); Z87.820 Personal history of traumatic brain injury
CPT/HCPCS: 70470

== ENCOUNTER 2021-03-31 15:25 | Outpatient (RCR) | payer MEDICARE, OTHER, SELFPAY ==
[2021-03-31 17:03] LABS: International Normalized Ratio 2.3; Prothrombin Time (Protime)PT. 24.3 SECONDS (11.7-14.9)
== END 2021-04-25 23:59 ==
LOC: BIMLAB 15:25
PROVIDERS: PCP Internal Medicine; Referring Provider Nurse Practitioner Family; Visit Provider Nurse Practitioner Family
DX: Z79.01 Long term (current) use of anticoagulants (principal)
CPT/HCPCS: 36415; 85610

== ENCOUNTER → 2021-04-09 11:45 | Outpatient (CLI) | payer MEDICARE, OTHER, SELFPAY ==
--- NOTE | 2021-04-09 14:04 | TELEMED_ITS ---
[facility] has confirmed receipt of a request for visit. This document confirms receipt of the order initiating the consult. To find the results of the consultation, please view the patient's reports for the scanned Telemed Consult.
== END ==
PROVIDERS: PCP Internal Medicine; Referring Provider Psychiatry & Neurology Neurology; Visit Provider Psychiatry & Neurology Neurology
DX: G40.919 Epilepsy, unspecified, intractable, without status epilepticus (principal); S06.9X9A Unspecified intracranial injury with loss of consciousness of unspecified duration, initial encounter; X58.XXXA Exposure to other specified factors, initial encounter
CPT/HCPCS: 95819

== ENCOUNTER 2021-05-25 12:14 | Outpatient (RCR) | payer MEDICARE, OTHER, SELFPAY ==
[2021-05-14 16:57] LABS: International Normalized Ratio 1.8; Prothrombin Time (Protime)PT. 20.5 SECONDS (11.7-14.9)
[2021-05-25 15:23] LABS: International Normalized Ratio 1.5; Prothrombin Time (Protime)PT. 17.8 SECONDS (11.7-14.9)
== END 2021-05-25 18:00 | disposition home or self-care (01) ==
LOC: MTLAB 12:14
PROVIDERS: PCP Internal Medicine; Referring Provider Internal Medicine; Visit Provider Internal Medicine
DX: Z79.01 Long term (current) use of anticoagulants (principal)
CPT/HCPCS: 36415; 85610

== ENCOUNTER 2021-06-02 12:03 | Outpatient (RCR) | payer MEDICARE, OTHER, SELFPAY ==
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
--- NOTE | 2021-08-24 08:26 | HP.PT.NRP ---
STEVE WOMACK was seen in my office for initial evaluation on 06/02/21. The following Plan of Care was established for this patient: Initial Frequency: 2x /Week Initial Duration: 4-6 Weeks Patient/Client Instruction: Educate patient on: Condition, Plan of Care For the Purpose of:: To improve self management Therapeutic Exercise to Include: Strength training, Endurance training, Balance training, Gait and locomotor training, Active ROM, Dynamic Lumbar Stabilization For the Purpose of:: To decrease pain, To improve muscle performance and motor function, To increase tolerance to activity/condition/position This patient was last seen in our office . Pertinent comments regarding their Physical therapy will appear below: Pt was evaluated for unsteady gait on the date of 06/02/21. Pt has not returned through todays date and is discontinued at this time. At this point I will be discontinuing this patient from physical therapy. I would be happy to see this patient again in the future if found appropriate by the physician. Thank you! Jadon Turcios, PT, ATC Balance/Gait/Functional tests - Balance/Special Test Scores Functional Gait Assessment Score: 13 % Disability: 56.6700 Lower Extremity Functional Score: 12
== END 2021-06-02 19:00 | disposition home or self-care (01) ==
LOC: PT 12:03
PROVIDERS: PCP Internal Medicine; Referring Provider Nurse Practitioner Family; Visit Provider Nurse Practitioner Family
DX: R26.89 Other abnormalities of gait and mobility (principal)
CPT/HCPCS: 97161

== ENCOUNTER → 2021-06-02 14:55 | Outpatient (CLI) | payer MEDICARE, OTHER, SELFPAY ==
[2021-06-02 17:17] LABS: Prothrombin Time (Protime)PT. 22.3 SECONDS (11.7-14.9)
== END ==
PROVIDERS: Nurse Practitioner Family; PCP Internal Medicine; Visit Provider Internal Medicine
DX: Z79.01 Long term (current) use of anticoagulants (principal)
CPT/HCPCS: 36415; 85610

== ENCOUNTER → 2021-06-07 12:48 | Outpatient (CLI) | payer MEDICARE, OTHER, SELFPAY ==
--- NOTE | 2021-06-07 12:55 | RAD_ITS ---
STUDY: X-RAY - LEFT KNEE REASON FOR EXAM: Male, 71 years old. see below TECHNIQUE: 3 view(s) of the knee. COMPARISON: None. FINDINGS: There is a total knee prosthesis in place otherwise normal visualized distal femur. Normal visualized proximal tibia and fibula. There is arthrosis of the proximal tibiofibular articulation. Postoperative changes along the posterior patella. Mild to moderate joint effusion. The soft tissue structures are unremarkable. RAD/Knee 3 Views IMPRESSION: Moderate to moderate joint effusion. Total knee prosthesis in place otherwise no acute fracture or subluxation. Electronically Signed: Jazmyne Phoenix MD at 1:17 EST , Service support ,
[2021-06-07 13:40] LABS: Absolute Lymphocyte Count 1.69 X10^3/uL (0.83-4.51); Absolute Neutrophil Count 2.9 X10^3/uL (2.0-7.7); Basophil# 0.03 X10^3/uL; Basophil% 0.6 % (0-1); Hematocrit 50.5 % (40-54); Hemoglobin 16.9 g/dL (13.0-16.5); Lymphocyte # 1.69 X10^3/ul (0.83-4.51); Lymphocyte % 32.6 % (19-41); Mean Corp Hgb Conc 33.5 g/dL (32-36); Mean Corpuscular Hgb 30.5 pg (27.0-32.0); Mean Corpuscular Volume 91.2 fL (80-94); Mean Platelet Vol. 9.4 fl (6.2-12.0); Monocyte# 0.57 X10^3/uL; NRBC Flagged by Analyzer 0 % (0-5); Neutrophil # 2.88 X10^3/uL (2.7-7.7); Neutrophil % 55.6 % (47-70); Platelet Count 176 K/mm3 (150-450); RBC Distribution Width CV 13.5 % (11.6-14.6); RBC Distribution Width SD 45.9 fl (35.1-43.9); Red Blood Count 5.54 M/mm3 (4.6-6.2); White Blood Count 5.2 K/mm3 (4.4-11.0)
[2021-06-07 13:55] LABS: ALB/GLOB Ratio 1.1 RATIO (0.9-2.4); AST(SGOT) 16 U/L (15-37); Alanine Aminotransfer ALT/SGPT 30 U/L (16-61); Alkaline Phosphatase 95 U/L (45-117); Anion Gap 6 (5-15); BUN 18 mg/dL (7-18); BUN/Creat Ratio 18.3 RATIO (10-20); Calcium,Total 9.1 mg/dL (8.5-10.1); Chloride 108 mmol/L (98-107); Creatinine, Serum 0.98 mg/dL (0.70-1.30); EST Glomerular Filtration Rate 80 mL/min (>60); Est Glom Filt Rate - Afr Amer 97 mL/min (>60); Globulin 3.8 g/dL (2.2-4.2); Glucose 111 mg/dL (74-106); Potassium 4.5 mmol/L (3.5-5.1); Protein, Total 7.8 g/dL (6.4-8.2); Sodium Level 139 mmol/L (136-145)
[2021-06-07 13:56] LABS: Hemoglobin A1c 5.3 % (3.8-5.6)
[2021-06-10 21:37] LABS: Vitamin D 1,25-Dihydroxy 33.4 pg/mL (19.9-79.3)
== END ==
PROVIDERS: Psychiatry & Neurology Neurology; PCP Internal Medicine; Referring Provider Nurse Practitioner Family; Visit Provider Nurse Practitioner Family
DX: R53.83 Other fatigue (principal); R45.1 Restlessness and agitation; R73.9 Hyperglycemia, unspecified; G40.909 Epilepsy, unspecified, not intractable, without status epilepticus; M25.462 Effusion, left knee; Z96.652 Presence of left artificial knee joint
CPT/HCPCS: 36415; 73562; 80053; 80177; 82140; 82652; 83036; 85025

== ENCOUNTER → 2021-06-08 | Outpatient (CLI) | payer MEDICARE, OTHER, SELFPAY ==
[2021-06-08 11:53] LABS: Bacteria 0 SEEN /hpf (None Seen); Mucous, Urine 0 SEEN /hpf (<or=2+); Red Blood Cells-Urine 0 SEEN /hpf (0-5); Squamous Epithelial Cells - UA 0 SEEN /hpf (0-5); White Blood Cells 0 SEEN /hpf (0-5)
[2021-06-08 15:19] LABS: Color, Urine Yellow (Yellow); Glucose, Dipstick Normal (Normal); Ketone-Dipstick 5 mg/dl (Negative); Leukocyte Esterase-Dipstick Negative /ul (Negative); Nitrite-Dipstick Negative (Negative); Occult Blood-Urine Negative /ul (Negative); Protein-Dipstick 15 mg/dl (Negative); Specific Gravity, Urine 1.025 (1.002-1.030); Urine Bilirubin Dipstick Negative (Negative); Urine Clarity Clear (Clear); Urine Urobilinogen Normal (Normal)
== END | disposition home or self-care (01) ==
LOC: LABSPEC 11:41
PROVIDERS: PCP Internal Medicine; Referring Provider Nurse Practitioner Family; Visit Provider Nurse Practitioner Family
DX: R35.0 Frequency of micturition (principal); R45.1 Restlessness and agitation
CPT/HCPCS: 81001; 87086

== ENCOUNTER 2021-06-21 14:55 | Outpatient (RCR) | payer MEDICARE, OTHER, SELFPAY ==
[2021-06-17 17:27] LABS: Prothrombin Time (Protime)PT. 48.2 SECONDS (11.7-14.9)
[2021-06-17 17:37] LABS: International Normalized Ratio 5.4
[2021-06-21 16:34] LABS: Absolute Neutrophil Count 3.5 X10^3/uL (2.0-7.7); Basophil# 0.04 X10^3/uL; Basophil% 0.7 % (0-1); Eosinophil# 0.02 X10^3/uL; Eosinophils% 0.3 % (0-5); Hematocrit 48.9 % (40-54); Hemoglobin 16.1 g/dL (13.0-16.5); Lymphocyte % 27.9 % (19-41); Mean Corp Hgb Conc 32.9 g/dL (32-36); Mean Corpuscular Volume 91.2 fL (80-94); Mean Platelet Vol. 9.5 fl (6.2-12.0); Monocyte# 0.58 X10^3/uL; Monocyte% 10.1 % (0-10); NRBC Flagged by Analyzer 0 % (0-5); Neutrophil # 3.47 X10^3/uL (2.7-7.7); Neutrophil % 60.7 % (47-70); Platelet Count 211 K/mm3 (150-450); RBC Distribution Width CV 13.8 % (11.6-14.6); RBC Distribution Width SD 46.6 fl (35.1-43.9); Red Blood Count 5.36 M/mm3 (4.6-6.2); White Blood Count 5.7 K/mm3 (4.4-11.0)
[2021-06-21 16:43] LABS: International Normalized Ratio 2.8; Prothrombin Time (Protime)PT. 28.7 SECONDS (11.7-14.9)
== END 2021-06-25 23:59 ==
LOC: BIMLAB 14:55
PROVIDERS: Physician Assistant; PCP Internal Medicine; Referring Provider Internal Medicine; Visit Provider Internal Medicine
DX: Z79.01 Long term (current) use of anticoagulants (principal)
CPT/HCPCS: 36415; 85025; 85610

== ENCOUNTER 2021-07-09 07:59 | Outpatient (CLI) | payer MEDICARE, OTHER, SELFPAY ==
[2021-07-09 11:33] LABS: International Normalized Ratio 3.1; Prothrombin Time (Protime)PT. 31.2 SECONDS (11.7-14.9)
== END 2021-07-09 23:59 | disposition short-term general hospital (02) ==
LOC: LAB 08:01
PROVIDERS: PCP Internal Medicine; Visit Provider Internal Medicine
DX: Z79.01 Long term (current) use of anticoagulants (principal)
CPT/HCPCS: 36415; 85610

== ENCOUNTER 2021-07-15 04:48 | Outpatient (CLI) | payer MEDICARE, OTHER, SELFPAY ==
[2021-07-15 11:53] LABS: International Normalized Ratio 1.9; Prothrombin Time (Protime)PT. 20.8 SECONDS (11.7-14.9)
== END 2021-07-15 23:59 | disposition short-term general hospital (02) ==
LOC: LAB 04:50
PROVIDERS: PCP Internal Medicine; Referring Provider Internal Medicine; Visit Provider Internal Medicine
DX: Z79.01 Long term (current) use of anticoagulants (principal)
CPT/HCPCS: 36415; 85610

== ENCOUNTER 2021-07-28 13:58 | Outpatient (CLI) | payer MEDICARE, OTHER, SELFPAY ==
[2021-07-28 14:41] LABS: International Normalized Ratio 2.2; Prothrombin Time (Protime)PT. 23.3 SECONDS (11.7-14.9)
== END 2021-07-28 23:59 | disposition short-term general hospital (02) ==
LOC: LAB 14:01
PROVIDERS: PCP Internal Medicine; Referring Provider Internal Medicine; Visit Provider Internal Medicine
DX: Z79.01 Long term (current) use of anticoagulants (principal)
CPT/HCPCS: 36415; 85610

== ENCOUNTER 2021-08-18 04:19 | Outpatient (CLI) | payer MEDICARE, OTHER, SELFPAY ==
[2021-08-18 10:35] LABS: International Normalized Ratio 2.8; Prothrombin Time (Protime)PT. 29.1 SECONDS (11.7-14.9)
== END 2021-08-18 23:59 | disposition home or self-care (01) ==
LOC: LAB 04:21
PROVIDERS: PCP Internal Medicine; Referring Provider Internal Medicine; Visit Provider Internal Medicine
DX: Z79.01 Long term (current) use of anticoagulants (principal)
CPT/HCPCS: 36415; 85610

== ENCOUNTER 2021-09-08 09:40 | Outpatient (CLI) | payer MEDICARE, OTHER, SELFPAY ==
[2021-09-08 11:15] LABS: Prothrombin Time (Protime)PT. 21.9 SECONDS (11.7-14.9)
== END 2021-09-08 23:59 | disposition home or self-care (01) ==
LOC: LAB 09:44
PROVIDERS: PCP Internal Medicine; Referring Provider Psychiatry & Neurology Neurology; Visit Provider Psychiatry & Neurology Neurology
DX: R79.89 Other specified abnormal findings of blood chemistry (principal); Z79.01 Long term (current) use of anticoagulants
CPT/HCPCS: 36415; 82140; 85610

== ENCOUNTER 2021-09-22 08:15 | Outpatient (CLI) | payer MEDICARE, OTHER, SELFPAY ==
[2021-09-22 10:48] LABS: International Normalized Ratio 1.7; Prothrombin Time (Protime)PT. 19.2 SECONDS (11.7-14.9)
== END 2021-09-22 23:59 | disposition home or self-care (01) ==
PROVIDERS: PCP Internal Medicine; Visit Provider Internal Medicine
DX: Z79.01 Long term (current) use of anticoagulants (principal)
CPT/HCPCS: 36415; 85610

== ENCOUNTER 2021-09-29 08:16 | Outpatient (CLI) | payer MEDICARE, OTHER, SELFPAY ==
[2021-09-29 10:29] LABS: International Normalized Ratio 1.9; Prothrombin Time (Protime)PT. 21.2 SECONDS (11.7-14.9)
== END 2021-09-29 23:59 | disposition home or self-care (01) ==
LOC: LAB 08:18
PROVIDERS: Psychiatry & Neurology Neurology; PCP Internal Medicine; Referring Provider Internal Medicine; Visit Provider Internal Medicine
DX: G40.909 Epilepsy, unspecified, not intractable, without status epilepticus (principal); Z79.01 Long term (current) use of anticoagulants
CPT/HCPCS: 36415; 82140; 85610

== ENCOUNTER 2021-10-06 09:05 | Outpatient (CLI) | payer MEDICARE, OTHER, SELFPAY ==
[2021-10-06 11:03] LABS: International Normalized Ratio 2.6; Prothrombin Time (Protime)PT. 27.6 SECONDS (11.7-14.9)
== END 2021-10-06 23:59 | disposition home or self-care (01) ==
LOC: LAB 09:25
PROVIDERS: PCP Internal Medicine; Referring Provider Internal Medicine; Visit Provider Internal Medicine
DX: Z79.01 Long term (current) use of anticoagulants (principal)
CPT/HCPCS: 36415; 85610

== ENCOUNTER 2021-10-12 08:39 | Outpatient (CLI) | payer MEDICARE, OTHER, SELFPAY ==
[2021-10-12 11:21] LABS: International Normalized Ratio 2.2; Prothrombin Time (Protime)PT. 23.8 SECONDS (11.7-14.9)
[2021-10-18 14:26] LABS: KEPPRA (LEVETIRACETAM) 19.7 ug/mL (10.0-40.0)
== END 2021-10-12 23:59 | disposition home or self-care (01) ==
LOC: LAB 08:40
PROVIDERS: Psychiatry & Neurology Neurology; PCP Internal Medicine; Visit Provider Internal Medicine
DX: Z79.01 Long term (current) use of anticoagulants (principal)
CPT/HCPCS: 36415; 80177; 82140; 85610